=== PATIENT | male | born 2005 | race Two or more races ===

== ENCOUNTER 2025-01-06 17:36 | Inpatient (IN) | payer MEDICAID, OTHER ==
[~2025-01-06] VITALS: Ht 180.3 cm; Wt 83.3 kg
--- NOTE | 2025-01-06 18:11 | ED.PDOC ---
Back pain HPI HPI Comments REPORTS PAIN WITH SWELLING AND DISCOLORATION OF THE 3RD TOE ON HIS RIGHT FOOT X 1 WEEK. CMS INTACT. STATES HE IS CURRENTLY TAKING KEFLEX SINCE 01/03/25. DENIES NUMBNESS, WEAKNESS, FEVER, CHILLS, NAUSEA AND VOMITING DOES RATE PAIN A 10/10 ON PAIN SCALE THROBBING IN NATURE NONRADIATING. REPORTS NO SIGNIFICANT PAST MEDICAL HISTORY Chief Complaint: Lower Extremity Time Seen by MD: 18:06 Primary Care Provider: DENIES Reviewed Notes: Medications Allergies: Coded Allergies: NO KNOWN ALLERGIES (Unverified , 01/06/25) Mode of Arrival: Wheelchair Past Medical History PAST MEDICAL HISTORY: Denies Surgical History: Denies all surgeries Family History Family History: Reviewed,noncontributory to illness Social History Smoker: Non-Smoker Alcohol: Denies ETOH Use Drugs: Denies Drug Use Constitutional: denies: chills, diaphoresis, fatigue, fever, malaise, sweats, weakness, others EENTM: denies: blurred vision, double vision, ear bleeding, ear discharge, ear drainage, ear pain, ear ringing, eye pain, eye redness, hearing loss, mouth pain, mouth swelling, nasal discharge, nose bleeding, nose congestion, nose pain, photophobia, tearing, throat pain, throat swelling, voice changes, others Respiratory: denies: cough, hemoptysis, orthopnea, SOB at rest, shortness of breath, SOB with excertion, stridor, wheezing, others Cardiovascular: denies: chest pain, dizzy spells, diaphoresis, Dyspnea on exertion, edema, irregular heart beat, left arm pain, lightheadedness, p alpitations, PND, syncope, others Gastrointestinal: denies: abdomen distended, abdominal pain, blood streaked bowels, constipated, diarrhea, dysphagia, difficulty swallowing, hematemesis, melena, nausea, poor appetite, poor fluid intake, rectal bleeding, rectal pain, vomiting, others Genitourinary: denies: burning, dysuria, flank pain, frequency, hematuria, incontinence, penile discharge, penile sore, pain, testicle pain, testicle swelling, urgency, others Neurological: denies: dizziness, fainting, headache, left sided numbness, left sided weakness, numbness, paresthesia, pre-existing deficit, right sided numbness, right sided weakness, seizure, speech problems, tingling, tremors, weakness, others Musculoskeletal: reports: joint pain, joint swelling; denies: back pain, gout, muscle pain, muscle stiffness, neck pain, others Integumetry: reports: bruises; denies: change in color, change in hair/nails, dryness, laceration, lesions, lumps, rash, wounds, others Allergic/Immunocompromised: denies: Difficulty Healing, Frequent Infections, Hives, Itching, others Hematologic/Lymphatic: denies: anemia, blood clots, easy bleeding, easy bruising, swollen glands, others Endocrine: denies: excessive hunger, excessive sweating, excessive thirst, excessive urination, flushing, intolerance to cold, intolerance to heat, unexplained weight gain, unexplained weight loss, others Psychiatric: denies: anxiety, bipolar disorder, depression, hopeless, panic disorder, schizophrenia, sleepless, suicidal, others Physical Exam General Appearance: No Apparent Distress, Normal HEENT: Pharynx Normal Neck: Full Range of Motion, Non-Tender Respiratory: Lungs Clear, No Respiratory Distress, Normal Breath Sounds Cardiovascular: No Edema, No JVD, No Murmur, No Gallop, Normal Peripheral Pulses, Regular Rate/Rhythm Breast Exam: Deferred Gastrointestinal: No Organomegaly, Non Tender, No Pulsatile Mass, Normal Bowel Sounds, Soft Genitalia: Deferred Pelvic: Deferred Rectal: Deferred Extremities: Normal capillary refill, Normal inspection, Normal range of motion, Non-tender, No pedal edema Musculoskeletal : Location: Right Extremity Location: Toe 3 (MODERATE EDEMA, ECCHYMOSIS AND ERYTHEMA NO NOTED DRAINAGE STRENGTH SENSORY AND MOTION INTACT CAP REFILL GREATER THAN 3 SECONDS) Apperance: Normal Neurologic: Alert, No Motor Deficits, Normal Affect, Normal Mood, No Sensory Deficits Cerebellar Function: Normal Reflexes: Normal Skin: Dry, Normal Color, Warm Lymphatic: No Adenopathy Was a procedure done? Was a procedure done?: No Back Pain Differential Dx Differential Diagnosis: Fracture X-Ray, Labs, Meds, VS Vital Signs Date Time Temp Pulse Resp B/P (MAP) Pulse Ox O2 Delivery O2 Flow Rate FiO2 01/06/25 17:55 97.9 107 16 143/80 (101) 100 97.9 Lab Test 01/06/25 18:35 Range/Units White Blood Count 10.3 4.4-10.8 10^3/uL Red Blood Count 5.62 4.5-5.90 10^6/uL Hemoglobin 17.4 13.5-17.5 g/dL Hematocrit 49.0 41.0-53.0 % Mean Corpuscular Volume 87.2 80.0-100.0 fL Mean Corpuscular Hemoglobin 30.9 28.0-32.0 pg Mean Corpuscular Hemoglobin Concent 35.4 32.0-36.0 g/dL Red Cell Distribution Width 14.2 11.8-14.3 % Platelet Count 202 140-450 10^3/uL Mean Platelet Volume 9.4 6.9-10.8 fL Neutrophils (%) (Auto) 79.0 37.0-80.0 % Lymphocytes (%) (Auto) 13.0 10.0-50.0 % Monocytes (%) (Auto) 7.1 0.0-12.0 % Eosinophils (%) (Auto) 0.3 0.0-7.0 % Basophils (%) (Auto) 0.6 0.0-2.0 % Neutrophils # (Auto) 8.1 1.6-8.6 10 ^3/uL Lymphocytes # (Auto) 1.3 0.4-5.4 10 ^3/uL Monocytes # (Auto) 0.7 0-1.3 10 ^3/uL Eosinophils # (Auto) 0 0-0.8 10 ^3/uL Basophils # (Auto) 0.1 0-0.2 10 ^3/uL Nucleated Red Blood Cells 0.1 % Sodium Level 143 136-145 mmol/L Potassium Level 3.4 L 3.5-5.1 mmol/L Chloride Level 107 98-107 mmol/L Carbon Dioxide Level 23 20-31 mmol/L Anion Gap 13 5-15 Blood Urea Nitrogen 9 9-23 mg/dL Creatinine 0.86 0.700-1.30 mg/dL Glomerular Filtration Rate Calc 126 >90 mL/min BUN/Creatinine Ratio 10.5 10.0-20.0 Serum Glucose 106 74-106 mg/dL Calcium Level 9.8 8.7-10.4 mg/dL Total Bilirubin 1.3 H 0.2-1.0 mg/dL Aspartate Amino Transferase (AST) 21 0-34 U/L Alanine Aminotransferase (ALT) 24 7-40 U/L Alkaline Phosphatase 80 46-116 U/L Total Protein 7.8 5.7-8.2 g/dL Albumin 4.9 H 3.2-4.8 g/dL Current Medications Medications (Trade) Dose Ordered Sig/Zuly Route Start Time Stop Time Status Last Admin Vancomycin HCl 200 ml @ 200 mls/hr ONCE ONCE IV 01/06/25 18:30 01/06/25 19:29 DC 01/06/25 20:37 Ketorolac Tromethamine (Toradol Injection) 30 mg ONCE ONCE IV 01/06/25 18:30 01/06/25 18:31 DC 01/06/25 20:36 X-Ray, Labs, Meds, VS Comment CT RIGHT FOOT 3RD DIGIT IMPRESSION: 1. No fracture no periosteal reaction. 2. Inflammatory stranding in the subcutaneous tissues around the 3rd digit of the right foot. 3. If osteomyelitis is of clinical concern recommend MRI. LABS: CBC CMP WITHIN NORMAL LIMITS MEDICATIONS: TORADOL 30 MG IV PUSH VANCO 1 G IV PIGGYBACK PLAN: Patient failed outpatient antibiotics we will start patient on IV antibiotics and consider an MRI in the morning for possible osteomyelitis. Patient placed for hospitalist Time of 1ST Reevaluation: 18:06 Reevaluation 1ST: Unchanged Time of 2ND Reevaluation: 20:31 Reevaluation 2ND: Unchanged Patient Education/Counseling: Diagnosis, Treatment, Prognosis, Need For Follow Up Family Education/Counseling: Diagnosis, Treatment, Prognosis, Need For Follow Up Departure 1 Departure Time of Disposition: 19:37 Impression: Primary Impression: Infected abrasion of third toe of left foot Qualified Codes: S90.415A - Abrasion, left lesser toe(s), initial encounter; L08.9 - Local infection of the skin and subcutaneous tissue, unspecified Disposition: ADMITTED INPATIENT Condition: Stable Discharged With: Relative (Mother) Critical Care Note Critical Care Time?: No Stability Stability form required: SONIA Tse Jan 06, 2025 18:11
[2025-01-06 18:59] LABS: Basophils # (auto) 0.1 10 ^3/uL (0-0.2); Basophils % (auto) 0.6 % (0.0-2.0); Eosinophils # (auto) 0 10 ^3/uL (0-0.8); Eosinophils % (auto) 0.3 % (0.0-7.0); Hemoglobin 17.4 g/dL (13.5-17.5); Lymphocytes # (auto) 1.3 10 ^3/uL (0.4-5.4); Mean Corpuscular Hemoglobin 30.9 pg (28.0-32.0); Mean Corpuscular Hgb Conc. 35.4 g/dL (32.0-36.0); Mean Corpuscular Volume 87.2 fL (80.0-100.0); Monocytes # (auto) 0.7 10 ^3/uL (0-1.3); Monocytes % (auto) 7.1 % (0.0-12.0); Neutrophils # (auto) 8.1 10 ^3/uL (1.6-8.6); Nucleated Red Blood Cells % 0.1 %; Platelet Count (auto) 202 10^3/uL (140-450); Red Blood Cells 5.62 10^6/uL (4.5-5.90); Red Cell Distribution Width 14.2 % (11.8-14.3); White Blood Cell 10.3 10^3/uL (4.4-10.8)
--- NOTE | 2025-01-06 19:11 | DVH ---
INDICATION: third digit injury infection COMPARISON: None TECHNIQUE: CT of the right was performed without contrast. Volume transverse images were obtained and reconstructed in multiple planes using bone and soft tissue algorithms. CONTRAST: None Radiation Dose Information: CT Dose: CTDI volume is 7.75 mGy. Dose-length product is 177.98 mGy*cm FINDINGS: The alignment is normal. The joint spaces are normal. There is no fracture, dislocation, or focal osseous lesions. The soft tissues are normal. IMPRESSION: 1. No fracture no periosteal reaction. 2. Inflammatory stranding in the subcutaneous tissues around the 3rd digit of the right foot. 3. If osteomyelitis is of clinical concern recommend MRI. 4. All CT scans at this medical facility are performed using dose modulation techniques as appropriat e to a performed exam including the following: Automated exposure control was utilized; adjustment of the MA and/or KV according to patient size; and use of iterative reconstruction technique.
[2025-01-06 19:27] LABS: Alanine Aminotransferase 24 U/L (7-40); Alkaline Phosphatase 80 U/L (46-116); Anion Gap 13 (5-15); Aspartate Aminotransferase 21 U/L (0-34); BUN/Creatinine Ratio 10.5 (10.0-20.0); Blood Urea Nitrogen 9 mg/dL (9-23); Calcium 9.8 mg/dL (8.7-10.4); Carbon Dioxide 23 mmol/L (20-31); Chloride 107 mmol/L (98-107); Glucose 106 mg/dL (74-106); Sodium 143 mmol/L (136-145); Total Protein 7.8 g/dL (5.7-8.2)
[2025-01-06 19:34] LABS: Albumin 4.9 g/dL (3.2-4.8); Bilirubin, Total 1.3 mg/dL (0.2-1.0); Potassium 3.4 mmol/L (3.5-5.1)
[2025-01-06] MEDS: KETOROLAC TROMETH 30 MG/ML 1ML VIAL IV ONE (20:36)
[2025-01-06] MEDS: VANCOMYCIN 1GM/200ML PM 200 ML IV ONE (20:37)
--- NOTE | 2025-01-06 23:57 | DVHHP2 ---
History of Present Illness Reason for Visit: Infected abrasion of third toe of left foot History of Present Illness The patient is a 19-year-old male who denies past medical history presented to [facility] ED for evaluation of right foot 3rd digits swelling and discoloration for the past 1 week, currently on Keflex since January 03, 2025. Patient was seen and evaluated in the ED, laboratory data shows WBC 10.3, platelets 202, sodium 143, potassium 3.4, BUN 9, creatinine 0.86, glucose 106, total bilirubin 1.3, albumin 4.9, blood pressure 143/80, heart rate 107, temperature 97.9 F, O2 saturation 99% on room air. Right foot CT revealing inflammatory stranding in the subcutaneous tissues around the 3rd digit of the right foot, no fracture, no periosteal reaction. Patient was started on IV antibiotic regimen vancomycin, please see medication orders section in the computer. On my assessment, patient denied chest pain, no headache, no dizziness, no shortness of breath, no nausea, no vomiting, no fever, no chills. Patient was admitted for further evaluation and medical management. Past Medical History Denies past medical history Past Surgical History Denies all surgeries Family History Reviewed, noncontributory to the management of this case. Past Social History The patient lives at home, denies smoking, alcohol or illicit drugs abuse. Review of Systems Constitutional: No: Fever, Chills, Sweats, Weakness, Malaise, Other Eyes: No: Pain, Vision change, Conjunctivae inflammation, Eyelid inflammation, Other, Redness ENT: No: Ear pain, Ear discharge, Nose pain, Nose discharge, Nose congestion, Mouth pain, Mouth swelling, Throat pain, Throat swelling, Other Respiratory: No: Cough, Dry, Shortness of breath, SOB with excertion, Wheezing, Hemoptysis, Pleuritic Pain, Sputum, Wheezing, Other Cardiovascular: No: Chest Pain, Palpitations, Orthopnea, Paroxysmal Noc. Dyspnea, Edema, Lt Headedness, Other Gastrointestinal: No: Nausea, Vomiting, Abdominal Pain, Diarrhea, Constipation, Melena, Hematochezia, Other Genitourinary: No Dysuria, No Frequency, No Incontinence, No Hematuria, No Retention, No Other Musculoskeletal: other (Right 3rd digit swelling/redness); No: neck pain, shoulder pain, arm pain, back pain, hand pain, leg pain, foot pain Skin: Other (Right 3rd toe redness); No: Rash, Lesions, Jaundice, Bruising Neurological: No: Weakness, Numbness, Incoordination, Change in speech, Confusion, Seizures, Other Allergies: Coded Allergies: NO KNOWN ALLERGIES (Unverified , 01/06/25) Exam Vital Signs Vital Signs Date Time Temp Pulse Resp B/P (MAP) Pulse Ox O2 Delivery O2 Flow Rate FiO2 01/06/25 17:55 97.9 107 16 143/80 (101) 100 97.9 General Appearance: Alert, Oriented X3, Cooperative, No acute distress HEENT: Atraumatic, PERRLA, EOMI, Mucous membr. moist/pink Respiratory: Clear to auscultation, Normal air movement Cardiovascular: Regular rate, Normal S1, Normal S2, No murmurs Abdominal: Normal bowel sounds, Soft, No tenderness, No hepatospenomegaly, No masses Extremities: No clubbing, No cyanosis, No edema, Normal pulses, Other (Right 3rd digit swelling/tenderness) Skin: No rashes, No breakdown, No significant lesion Neuro: Normal gait, Normal speech, Strength at 5/5 X4 ext, Normal tone, Sensation intact, Cranial nerves 3-12 NL, Reflexes 2+ Psych/Mental Status: Mental status NL, Mood NL Labs/Xrays Labs Test 01/06/25 18:35 Range/Units White Blood Count 10.3 4.4-10.8 10^3/uL Red Blood Count 5.62 4.5-5.90 10^6/uL Hemoglobin 17.4 13.5-17.5 g/dL Hematocrit 49.0 41.0-53.0 % Mean Corpuscular Volume 87.2 80.0-100.0 fL Mean Corpuscular Hemoglobin 30.9 28.0-32.0 pg Mean Corpuscular Hemoglobin Concent 35.4 32.0-36.0 g/dL Red Cell Distribution Width 14.2 11.8-14.3 % Platelet Count 202 140-450 10^3/uL Mean Platelet Volume 9.4 6.9-10.8 fL Neutrophils (%) (Auto) 79.0 37.0-80.0 % Lymphocytes (%) (Auto) 13.0 10.0-50.0 % Monocytes (%) (Auto) 7.1 0.0-12.0 % Eosinophils (%) (Auto) 0.3 0.0-7.0 % Basophils (%) (Auto) 0.6 0.0-2.0 % Neutrophils # (Auto) 8.1 1.6-8.6 10 ^3/uL Lymphocytes # (Auto) 1.3 0.4-5.4 10 ^3/uL Monocytes # (Auto) 0.7 0-1.3 10 ^3/uL Eosinophils # (Auto) 0 0-0.8 10 ^3/uL Basophils # (Auto) 0.1 0-0.2 10 ^3/uL Nucleated Red Blood Cells 0.1 % Sodium Level 143 136-145 mmol/L Potassium Level 3.4 L 3.5-5.1 mmol/L Chloride Level 107 98-107 mmol/L Carbon Dioxide Level 23 20-31 mmol/L Anion Gap 13 5-15 Blood Urea Nitrogen 9 9-23 mg/dL Creatinine 0.86 0.700-1.30 mg/dL Glomerular Filtration Rate Calc 126 >90 mL/min BUN/Creatinine Ratio 10.5 10.0-20.0 Serum Glucose 106 74-106 mg/dL Calcium Level 9.8 8.7-10.4 mg/dL Total Bilirubin 1.3 H 0.2-1.0 mg/dL Aspartate Amino Transferase (AST) 21 0-34 U/L Alanine Aminotransferase (ALT) 24 7-40 U/L Alkaline Phosphatase 80 46-116 U/L Total Protein 7.8 5.7-8.2 g/dL Albumin 4.9 H 3.2-4.8 g/dL PATIENT: NATALYA COOLEY IACCT: [id number] UNIT: [id number] : 2005 LOC: ER ROOM / BED: / AGE / SEX: 19 / M ADM STATUS: REG ER SERVICE [id number] ORDERING PHYSICIAN: SONIA JOINER PROCEDURE(s): RFTCT - CT R FOOT WO CONTRAST REASON: third digit injury infection ORDER NUMBER(s): [id number], ACCESSION NUMBER(s): [id number] INDICATION: third digit injury infection COMPARISON: None TECHNIQUE: CT of the right was performed without contrast. Volume transverse images were obtained and reconstructed in multiple planes using bone and soft tissue algorithms. CONTRAST: None Radiation Dose Information: CT Dose: CTDI volume is 7.75 mGy. Dose-length product is 177.98 mGy*cm FINDINGS: The alignment is normal. The joint spaces are normal. There is no fracture, dislocation, or focal osseous lesions. The soft tissues are normal. IMPRESSION: 1. No fracture no periosteal reaction. 2. Inflammatory stranding in the subcutaneous tissues around the 3rd digit of the right foot. 3. If osteomyelitis is of clinical concern recommend MRI. Assessment/Plan Assessment/Plan Infected abrasion of third toe of left foot Abrasion, left lesser toe(s), initial encounter Local infection of the skin and subcutaneous tissue, unspecified Plan 1. Admit to med surge unit 2. Breathing treatment 3. Pain control management 4. Management of fluids and electrolytes 5. Consultation for hospitalist 6. Diagnostic tests right foot CT 7. DVT prophylaxis on SCDs 8. Repeat labs CBC, CMP in a.m. 9. Continue with current medical management 10. Treatment plan discussed with patient and RN. Patient verbalized understanding. Plan discussed with: Patient, Other (RN) Problem List: (1) Infected abrasion of third toe of left foot (2) Abrasion, left lesser toe(s), initial encounter (3) Local infection of the skin and subcutaneous tissue, unspecified Date of Service: Jan 06, 2025 Billing Provider: JESSIE HOUSE DNP Common Visit Codes: [id number] INP/OBS CARE (MOD) JESSIE HOUSE DNP Jan 06, 2025 23:57
[2025-01-07] VITALS (8 sets, daily range): BP systolic 120–148; BP diastolic 62–84; PULSE 54–65; RESP 16–20; TEMP 97.6–98.3; O2SAT 98–99
[2025-01-07] MEDS ORDERED: VANCOMYCIN PER PHARMACY 0 MG IV SCH
[2025-01-07] MEDS ORDERED: NITROGLYCERIN 0.4 MG SL TAB SL PRN
[2025-01-07] MEDS ORDERED: ONDANSETRON HCL 4 MG/2 ML VIAL IV PRN
[2025-01-07] MEDS ORDERED: MORPHINE SULFATE INJ 2 MG/ml SYRG IV PRN
[2025-01-07] MEDS ORDERED: DOCUSATE SOD 100 MG CAP PO PRN
[2025-01-07] MEDS ORDERED: ACETAMINOPHEN 325 MG TAB PO PRN
[2025-01-07] MEDS: HYDROcodone-ACET 5/325MG TAB PO PRN (02:57)
[2025-01-07] MEDS: VANCOMYCIN 1GM/200ML PM 200 ML IV ONE (02:58)
[2025-01-07] MEDS: SODIUM CHLOR 0.9% PF (SALINE LOCK) 10ML VIAL/SYR IV SCH (06:30)
[2025-01-07 07:06] LABS: Basophils # (auto) 0.1 10 ^3/uL (0-0.2); Basophils % (auto) 0.7 % (0.0-2.0); Eosinophils # (auto) 0 10 ^3/uL (0-0.8); Eosinophils % (auto) 0.2 % (0.0-7.0); Hematocrit 45.2 % (41.0-53.0); Lymphocytes # (auto) 1.8 10 ^3/uL (0.4-5.4); Lymphocytes % (auto) 22.6 % (10.0-50.0); Mean Corpuscular Hemoglobin 31.2 pg (28.0-32.0); Mean Corpuscular Hgb Conc. 35.5 g/dL (32.0-36.0); Mean Corpuscular Volume 87.9 fL (80.0-100.0); Monocytes # (auto) 0.7 10 ^3/uL (0-1.3); Neutrophils # (auto) 5.3 10 ^3/uL (1.6-8.6); Neutrophils % (auto) 67.5 % (37.0-80.0); Nucleated Red Blood Cells % 0.1 %; Platelet Count (auto) 173 10^3/uL (140-450); Red Blood Cells 5.14 10^6/uL (4.5-5.90); White Blood Cell 7.8 10^3/uL (4.4-10.8)
[2025-01-07 07:21] LABS: Alanine Aminotransferase 19 U/L (7-40); Alkaline Phosphatase 68 U/L (46-116); Anion Gap 13 (5-15); BUN/Creatinine Ratio 9.1 (10.0-20.0); Carbon Dioxide 24 mmol/L (20-31); Chloride 104 mmol/L (98-107); Sodium 141 mmol/L (136-145)
[2025-01-07 07:23] LABS: Albumin 4.4 g/dL (3.2-4.8); Aspartate Aminotransferase 17 U/L (<34)
[2025-01-07 07:29] LABS: Bilirubin, Total 1.7 mg/dL (0.2-1.0); Blood Urea Nitrogen 7 mg/dL (9-23); Glucose 97 mg/dL (74-106); Potassium 3.2 mmol/L (3.5-5.1)
[2025-01-07] MEDS: VANCOMYCIN 1.25GM/250ML 250 ML IV SCH (10:21)
--- NOTE | 2025-01-07 13:28 | DVHPN2 ---
Changes from previous H/P or p: No Changes Eyes: No Pain, No Vision change, No Conjunctivae inflammation, No Eyelid inflammation, No Other, No Redness ENT: No Ear pain, No Ear discharge, No Nose pain, No Nose discharge, No Nose congestion, No Mouth pain, No Mouth swelling, No Throat pain, No Throat swelling, No Other Cardiovascular: No Chest Pain, No Palpitations, No Orthopnea, No Paroxysmal Noc. Dyspnea, No Edema, No Lt Headedness, No Other Respiratory: No Cough, No Dry, No Shortness of breath, No SOB with excertion, No Wheezing, No Hemoptysis, No Pleuritic Pain, No Sputum, No Other Gastrointestinal: No Nausea, No Vomiting, No Abdominal Pain, No Diarrhea, No Constipation, No Melena, No Hematochezia, No Other Genitourinary: No Dysuria, No Frequency, No Incontinence, No Hematuria, No Retention, No Other Musculoskeletal: other (Right 3rd digit swelling/redness); No neck pain, No shoulder pain, No arm pain, No back pain, No hand pain, No leg pain, No foot pain Skin: No Rash, No Lesions, No Jaundice, No Bruising; Other (Right 3rd toe redness) Objective Vitals Vital Signs Date Time Temp Pulse Resp B/P (MAP) Pulse Ox O2 Delivery O2 Flow Rate FiO2 01/07/25 12:39 97.9 57 16 120/77 (91) 98 97.9 01/07/25 07:52 Room Air* 0 21 Intake/Output Intake and Output 01/07/25 07:00 Intake Total 200 ml Balance 200 ml Intake Oral 0 ml IV Total 200 ml Medications Current Medications Medications Dose Ordered Sig/Zuly Route Start Time Stop Time Status Last Admin Dose Admin Vancomycin HCl 0 ml @ 0 mls/hr UD IV 01/07/25 00:00 Sodium Chloride 10 ml Q8HR IV 01/07/25 06:00 01/07/25 06:30 10 ML Acetaminophen/ Hydrocodone Bitart 1 tab Q4HP PRN PO 01/07/25 00:00 01/07/25 08:13 1 TAB Ondansetron HCl 4 mg Q4HP PRN IV 01/07/25 00:00 Docusate Sodium 100 mg BIDPRN PRN PO 01/07/25 00:00 Acetaminophen 650 mg Q6HP PRN PO 01/07/25 00:00 Morphine Sulfate 2 mg Q4HPRN PRN IV 01/07/25 00:00 Nitroglycerin 0.4 mg Q5MINP PRN SL 01/07/25 00:00 Morphine Sulfate 2 mg Q30M PRN IV 01/07/25 00:00 Vancomycin HCl 250 ml @ 200 mls/hr Q8H IV 01/07/25 11:00 01/07/25 10:21 200 MLS/HR Laboratory Results Laboratory Tests 01/07/25 06:24 Chemistry Test 01/06/25 18:35 01/07/25 06:24 Albumin 4.9 g/dL (3.2-4.8) H 4.4 g/dL (3.2-4.8) Calcium Level 9.8 mg/dL (8.7-10.4) 9.0 mg/dL (8.7-10.4) Total Protein 7.8 g/dL (5.7-8.2) 7.0 g/dL (5.7-8.2) LFT Test 01/06/25 18:35 01/07/25 06:24 Alanine Aminotransferase (ALT) 24 U/L (7-40) 19 U/L (7-40) Alkaline Phosphatase 80 U/L (46-116) 68 U/L (46-116) Aspartate Amino Transferase (AST) 21 U/L (0-34) 17 U/L (<34) Total Bilirubin 1.3 mg/dL (0.2-1.0) H 1.7 mg/dL (0.2-1.0) H Labs and/or images reviewed: Labs reviewed by me, Image(s) reviewed by me Assessment/Plan Assessment/Plan Infected right 3rd toe: Vancomycin, CT right foot negative for any osteomyelitis Failed outpatient therapy on Keflex Plan discussed with: Patient Date of Service: Jan 07, 2025 Billing Provider: MARCELA BELL MD Common Visit Codes: [id number] INP/OBS CARE(HIGH) MARCELA BELL MD Jan 07, 2025 13:28
[2025-01-08 01:00] VITALS: BP 135/85; PULSE 56; RESP 18; TEMP 98.7; O2SAT 100
[2025-01-08 05:00] VITALS: BP 136/82; PULSE 50; RESP 17; TEMP 98; O2SAT 99
[2025-01-08 08:35] VITALS: BP 136/94; PULSE 60; RESP 18; TEMP 97.1; O2SAT 99
--- NOTE | 2025-01-08 09:41 | DVHPN2 ---
Reviewed: Care Plan, H&P, Labs, Medications, Previous Orders, Radiology Changes from previous H/P or p: No Changes Eyes: No Pain, No Vision change, No Conjunctivae inflammation, No Eyelid inflammation, No Other, No Redness ENT: No Ear pain, No Ear discharge, No Nose pain, No Nose discharge, No Nose congestion, No Mouth pain, No Mouth swelling, No Throat pain, No Throat swelling, No Other Cardiovascular: No Chest Pain, No Palpitations, No Orthopnea, No Paroxysmal Noc. Dyspnea, No Edema, No Lt Headedness, No Other Respiratory: No Cough, No Dry, No Shortness of breath, No SOB with excertion, No Wheezing, No Hemoptysis, No Pleuritic Pain, No Sputum, No Other Gastrointestinal: No Nausea, No Vomiting, No Abdominal Pain, No Diarrhea, No Constipation, No Melena, No Hematochezia, No Other Genitourinary: No Dysuria, No Frequency, No Incontinence, No Hematuria, No Retention, No Other Musculoskeletal: other (Right 3rd digit swelling/redness); No neck pain, No shoulder pain, No arm pain, No back pain, No hand pain, No leg pain, No foot pain Skin: No Rash, No Lesions, No Jaundice, No Bruising; Other (Right 3rd toe redness) Objective Vitals Vital Signs Date Time Temp Pulse Resp B/P (MAP) Pulse Ox O2 Delivery O2 Flow Rate FiO2 01/08/25 08:35 97.1 60 18 136/94 (108) 99 97.1 01/08/25 08:00 Room Air* 0 21 Intake/Output Intake and Output 01/08/25 07:00 Intake Total 2430 ml Output Total 700 ml Balance 1730 ml Intake Oral 1680 ml IV Total 750 ml Output Urine Total 700 ml # Voids 3 # Bowel Movements 1 Medications Current Medications Medications Dose Ordered Sig/Zuly Route Start Time Stop Time Status Last Admin Dose Admin Vancomycin HCl 0 ml @ 0 mls/hr UD IV 01/07/25 00:00 Sodium Chloride 10 ml Q8HR IV 01/07/25 06:00 01/08/25 05:11 10 ML Acetaminophen/ Hydrocodone Bitart 1 tab Q4HP PRN PO 01/07/25 00:00 01/08/25 03:01 1 TAB Ondansetron HCl 4 mg Q4HP PRN IV 01/07/25 00:00 Docusate Sodium 100 mg BIDPRN PRN PO 01/07/25 00:00 Acetaminophen 650 mg Q6HP PRN PO 01/07/25 00:00 Morphine Sulfate 2 mg Q4HPRN PRN IV 01/07/25 00:00 Nitroglycerin 0.4 mg Q5MINP PRN SL 01/07/25 00:00 Morphine Sulfate 2 mg Q30M PRN IV 01/07/25 00:00 Vancomycin HCl 250 ml @ 200 mls/hr Q8H IV 01/07/25 11:00 01/08/25 02:54 200 MLS/HR Laboratory Results Laboratory Tests 01/07/25 06:24 01/08/25 01:55 Labs and/or images reviewed: Labs reviewed by me, Image(s) reviewed by me Assessment/Plan Assessment/Plan Infected right 3rd toe: Vancomycin, CT right foot negative for any osteomyelitis Failed outpatient therapy on Keflex Plan discussed with: Patient My Orders Orders - MARCELA BELL MD Procedure Category Date Status Time Apply: DAVID 01/07/25 In Process 11:42 Date of Service: Jan 08, 2025 Billing Provider: MARCELA BELL MD Common Visit Codes: [id number] INP/OBS CARE(HIGH) MARCELA BELL MD Jan 08, 2025 09:41
[2025-01-08 12:00] VITALS: BP 136/92; PULSE 63; RESP 15; TEMP 97.8; O2SAT 99
[2025-01-08 16:46] VITALS: BP_SYST 125; BP_SYST 137; BP_DIAS 75; BP_DIAS 92; PULSE 81; PULSE 92; RESP 16; RESP 18; TEMP 98; TEMP 98.9; O2SAT 94; O2SAT 98
[2025-01-08 21:00] VITALS: BP 132/73; PULSE 57; RESP 20; TEMP 98; O2SAT 97
[2025-01-09 01:00] VITALS: BP 124/62; PULSE 47; RESP 16; TEMP 97.7; O2SAT 98
[2025-01-09 05:00] VITALS: BP 126/76; PULSE 68; RESP 20; TEMP 98.4; O2SAT 99
[2025-01-09 05:34] LABS: Basophils # (auto) 0.1 10 ^3/uL (0-0.2); Basophils % (auto) 1.1 % (0.0-2.0); Eosinophils # (auto) 0.1 10 ^3/uL (0-0.8); Eosinophils % (auto) 1.3 % (0.0-7.0); Hematocrit 46.2 % (41.0-53.0); Hemoglobin 16.3 g/dL (13.5-17.5); Lymphocytes # (auto) 1.5 10 ^3/uL (0.4-5.4); Lymphocytes % (auto) 28.4 % (10.0-50.0); Mean Corpuscular Hemoglobin 30.9 pg (28.0-32.0); Mean Corpuscular Hgb Conc. 35.3 g/dL (32.0-36.0); Mean Corpuscular Volume 87.5 fL (80.0-100.0); Monocytes # (auto) 0.6 10 ^3/uL (0-1.3); Monocytes % (auto) 12.2 % (0.0-12.0); Neutrophils # (auto) 2.9 10 ^3/uL (1.6-8.6); Nucleated Red Blood Cells % 0.3 %; Platelet Count (auto) 198 10^3/uL (140-450); Red Blood Cells 5.28 10^6/uL (4.5-5.90); White Blood Cell 5.2 10^3/uL (4.4-10.8)
[2025-01-09 09:00] VITALS: BP 134/88; PULSE 57; RESP 20; TEMP 97.1; O2SAT 100
--- NOTE | 2025-01-09 10:05 | DVHPN2 ---
Reviewed: Care Plan, H&P, Labs, Medications, Previous Orders, Radiology Changes from previous H/P or p: No Changes Eyes: No Pain, No Vision change, No Conjunctivae inflammation, No Eyelid inflammation, No Other, No Redness ENT: No Ear pain, No Ear discharge, No Nose pain, No Nose discharge, No Nose congestion, No Mouth pain, No Mouth swelling, No Throat pain, No Throat swelling, No Other Cardiovascular: No Chest Pain, No Palpitations, No Orthopnea, No Paroxysmal Noc. Dyspnea, No Edema, No Lt Headedness, No Other Respiratory: No Cough, No Dry, No Shortness of breath, No SOB with excertion, No Wheezing, No Hemoptysis, No Pleuritic Pain, No Sputum, No Other Gastrointestinal: No Nausea, No Vomiting, No Abdominal Pain, No Diarrhea, No Constipation, No Melena, No Hematochezia, No Other Genitourinary: No Dysuria, No Frequency, No Incontinence, No Hematuria, No Retention, No Other Musculoskeletal: other (Right 3rd digit swelling/redness); No neck pain, No shoulder pain, No arm pain, No back pain, No hand pain, No leg pain, No foot pain Skin: No Rash, No Lesions, No Jaundice, No Bruising; Other (Right 3rd toe redness) Objective Vitals Vital Signs Date Time Temp Pulse Resp B/P (MAP) Pulse Ox O2 Delivery O2 Flow Rate FiO2 01/09/25 08:00 Room Air* 0 21 01/09/25 05:00 98.4 68 20 126/76 (93) 99 98.4 Intake/Output Intake and Output 01/09/25 07:00 Intake Total 2650 ml Output Total 1325 ml Balance 1325 ml Intake Oral 2400 ml IV Total 250 ml Output Urine Total 1325 ml Medications Current Medications Medications Dose Ordered Sig/Zuly Route Start Time Stop Time Status Last Admin Dose Admin Vancomycin HCl 0 ml @ 0 mls/hr UD IV 01/07/25 00:00 Sodium Chloride 10 ml Q8HR IV 01/07/25 06:00 01/09/25 06:00 10 ML Acetaminophen/ Hydrocodone Bitart 1 tab Q4HP PRN PO 01/07/25 00:00 01/09/25 09:41 1 TAB Ondansetron HCl 4 mg Q4HP PRN IV 01/07/25 00:00 Docusate Sodium 100 mg BIDPRN PRN PO 01/07/25 00:00 Acetaminophen 650 mg Q6HP PRN PO 01/07/25 00:00 Morphine Sulfate 2 mg Q4HPRN PRN IV 01/07/25 00:00 Nitroglycerin 0.4 mg Q5MINP PRN SL 01/07/25 00:00 Morphine Sulfate 2 mg Q30M PRN IV 01/07/25 00:00 Vancomycin HCl 250 ml @ 200 mls/hr Q8H IV 01/07/25 11:00 01/09/25 03:10 200 MLS/HR Laboratory Results Laboratory Tests 01/07/25 06:24 01/09/25 05:10 Labs and/or images reviewed: Labs reviewed by me, Image(s) reviewed by me Assessment/Plan Assessment/Plan Infected right 3rd toe: Vancomycin, CT right foot negative for any osteomyelitis, complaint specialist consult for Dr. Bain Failed outpatient therapy on Keflex Plan discussed with: Patient Date of Service: Jan 09, 2025 Billing Provider: MARCELA BELL MD Common Visit Codes: [id number] INP/OBS CARE(HIGH) MARCELA BELL MD Jan 09, 2025 10:05
--- NOTE | 2025-01-09 12:58 | DVH ---
EXAMINATION: MRI MRI R FOOT WO CONTRAST TECHNIQUE: Multiplanar and multisequence MRI of the right foot was performed without intravenous cont rast. HISTORY: Cellulitis right 3rd toe COMPARISON: CT CT R FOOT WO CONTRAST on DOS: 01/06/25 FINDINGS: There is confluent intramedullary STIR hyperintensity and T1 hypointensity of the 3rd distal phalanx of the right foot. There is associated erosion along the plantar aspect of the bony cortex. The remai nder of the visualized foot demonstrates normal marrow signal. Soft tissue thickening and edema within the 3rd toe. There is suggestion of a skin defect/wound in th e dorsal aspect of the 3rd toe overlying the middle phalanx (series 9, image 8; series 6, image 17). There is overlying fluid superficial to the skin. Limited evaluation of tendons and ligaments in the foot. IMPRESSION: 1. Osteomyelitis of the 3rd distal phalanx. 2. Cellulitis of the 3rd toe with a probable skin defect/wound in the dorsal aspect of the toe.
[2025-01-09 13:00] VITALS: BP 149/91; PULSE 99; RESP 20; TEMP 97.9; O2SAT 99
[2025-01-09 17:00] VITALS: BP 135/79; PULSE 96; RESP 20; TEMP 96.5; O2SAT 99
[2025-01-09 21:00] VITALS: BP 138/89; PULSE 72; RESP 18; TEMP 98; O2SAT 99
[2025-01-10] VITALS (9 sets, daily range): BP systolic 123–144; BP diastolic 72–94; PULSE 62–112; RESP 12–20; TEMP 97.6–100.4; O2SAT 95–100
[2025-01-10 07:03] LABS: Basophils # (auto) 0 10 ^3/uL (0-0.2); Basophils % (auto) 0.8 % (0.0-2.0); Eosinophils # (auto) 0.1 10 ^3/uL (0-0.8); Eosinophils % (auto) 1.1 % (0.0-7.0); Hematocrit 47.2 % (41.0-53.0); Hemoglobin 16.9 g/dL (13.5-17.5); Lymphocytes % (auto) 17.2 % (10.0-50.0); Mean Corpuscular Hemoglobin 31.3 pg (28.0-32.0); Mean Corpuscular Hgb Conc. 35.8 g/dL (32.0-36.0); Mean Corpuscular Volume 87.6 fL (80.0-100.0); Monocytes # (auto) 0.6 10 ^3/uL (0-1.3); Neutrophils % (auto) 70.9 % (37.0-80.0); Platelet Count (auto) 219 10^3/uL (140-450); Red Blood Cells 5.38 10^6/uL (4.5-5.90); White Blood Cell 5.7 10^3/uL (4.4-10.8)
--- NOTE | 2025-01-10 09:22 | DVHINCON2 ---
Date Seen: Jan 10, 2025 Reason for Consultation Left foot wound History of Present Illness The patient is a 19-year-old male who denies past medical history presented to [facility] ED for evaluation of right foot 3rd digits swelling and discoloration for the past 1 week, currently on Keflex since January 03, 2025. Patient was seen and evaluated in the ED, laboratory data shows WBC 10.3, platelets 202, sodium 143, potassium 3.4, BUN 9, creatinine 0.86, glucose 106, total bilirubin 1.3, albumin 4.9, blood pressure 143/80, heart rate 107, temperature 97.9 F, O2 saturation 99% on room air. Right foot CT revealing inflammatory stranding in the subcutaneous tissues around the 3rd digit of the right foot, no fracture, no periosteal reaction. Patient was started on IV antibiotic regimen vancomycin, please see medication orders section in the computer. On my assessment, patient denied chest pain, no headache, no dizziness, no shortness of breath, no nausea, no vomiting, no fever, no chills. Patient was admitted for further evaluation and medical management. Past Medical History See H&P Past Surgical History See H&P Family History: Patient reports no known family medical history. Allergies: Coded Allergies: NO KNOWN ALLERGIES (Unverified , 01/06/25) Vital Signs Vital Signs Date Time Temp Pulse Resp B/P (MAP) Pulse Ox O2 Delivery O2 Flow Rate FiO2 01/10/25 05:00 98.2 68 18 123/72 (89) 100 98.2 01/09/25 20:00 Room Air* 0 21 Physical Exam Dermatological: Skin is dry with mild erythema and some maceration around the wound site No gross deformities noted Mild non-pitting edema present bilaterally Wound: Location: at the plantar aspect of the right first metatarsal head. Measures: _ cm in length, _ cm in width, and _ cm in depth. Depth: Full thickness Base: Mix of granulation/slough Drainage: None Odor: None Periwound: Intact Vascular: Dorsalis pedis and posterior tibial pulses are 1+ bilaterally Capillary refill is under 2 seconds Skin temperature is warm bilaterally Neurologic: Protective sensation is absent on the plantar forefoot bilaterally Monofilament testing reveals decreased sensation in multiple plantar sites Musculoskeletal: Range of motion at the ankle and MTP joints is within normal limits. Strength is 5/5 in all tested muscle groups. Gait is antalgic due to offloading of the affected limb. Labs/Diagnostic Data Labs Test 01/10/25 05:59 01/09/25 05:10 01/08/25 01:55 01/07/25 06:24 Range/Units White Blood Count 5.7 4.4-10.8 10^3/uL Red Blood Count 5.38 4.5-5.90 10^6/uL Hemoglobin 16.9 13.5-17.5 g/dL Hematocrit 47.2 41.0-53.0 % Mean Corpuscular Volume 87.6 80.0-100.0 fL Mean Corpuscular Hemoglobin 31.3 28.0-32.0 pg Mean Corpuscular Hemoglobin Concent 35.8 32.0-36.0 g/dL Red Cell Distribution Width 14.0 11.8-14.3 % Platelet Count 219 140-450 10^3/uL Mean Platelet Volume 8.8 6.9-10.8 fL Neutrophils (%) (Auto) 70.9 37.0-80.0 % Lymphocytes (%) (Auto) 17.2 10.0-50.0 % Monocytes (%) (Auto) 10.0 0.0-12.0 % Eosinophils (%) (Auto) 1.1 0.0-7.0 % Basophils (%) (Auto) 0.8 0.0-2.0 % Neutrophils # (Auto) 4.0 1.6-8.6 10 ^3/uL Lymphocytes # (Auto) 1.0 0.4-5.4 10 ^3/uL Monocytes # (Auto) 0.6 0-1.3 10 ^3/uL Eosinophils # (Auto) 0.1 0-0.8 10 ^3/uL Basophils # (Auto) 0 0-0.2 10 ^3/uL Nucleated Red Blood Cells 0.0 % Creatinine 0.82 0.700-1.30 mg/dL Glomerular Filtration Rate Calc 128 >90 mL/min Hemoglobin A1c 4.7 <5.7 % A1C Vancomycin Level Trough 11.5 H 5-10 ug/mL Sodium Level 141 136-145 mmol/L Potassium Level 3.2 L 3.5-5.1 mmol/L Chloride Level 104 98-107 mmol/L Carbon Dioxide Level 24 20-31 mmol/L Anion Gap 13 5-15 Blood Urea Nitrogen 7 L 9-23 mg/dL BUN/Creatinine Ratio 9.1 L 10.0-20.0 Serum Glucose 97 74-106 mg/dL Calcium Level 9.0 8.7-10.4 mg/dL Total Bilirubin 1.7 H 0.2-1.0 mg/dL Aspartate Amino Transferase (AST) 17 <34 U/L Alanine Aminotransferase (ALT) 19 7-40 U/L Alkaline Phosphatase 68 46-116 U/L Total Protein 7.0 5.7-8.2 g/dL Albumin 4.4 3.2-4.8 g/dL Problems(with codes): (1) Infected abrasion of third toe of left foot (2) Local infection of the skin and subcutaneous tissue, unspecified (3) Abrasion, left lesser toe(s), initial encounter Plan/Recommendation ASSESSMENT: Patient is a 19 year old seen on the floor for a worsening ulcer PLAN: - The patients chart was reviewed, clinical findings were discussed with the patient, the etiologies of the conditions were discussed in detail, and a treatment plan was agreed to at this time, with both oral and written instructio ns provided. - reviewed advanced imaging - discussed plan is to perform an incision and drainage - patient has been NPO since midnight - take him to the OR today - we will get cultures in the OR - can weightbear as tolerated in postoperative shoe All questions were answered and concerns addressed to the patient's satisfaction. The patient was given the phone number to the clinic and was told how to make contact with the clinic should any concerns or questions arise. Patient understands that if any questions or concerns arise prior to the next appointment, we should be contacted immediately. FOLLOW-UP: Continue to follow while inpatient Plan discussed with: Patient Date of Service: Jan 10, 2025 Billing Provider: ANUPAM GONZALEZ DPM Common Visit Codes: CONSULT ONLY Consultation Codes: [id number] CONSULT <80MIN ANUPAM GONZALEZ DPM Jan 10, 2025 09:22
--- NOTE | 2025-01-10 10:50 | DVHPN2 ---
Reviewed: Care Plan, H&P, Labs, Medications, Previous Orders, Radiology Changes from previous H/P or p: No Changes Eyes: No Pain, No Vision change, No Conjunctivae inflammation, No Eyelid inflammation, No Other, No Redness ENT: No Ear pain, No Ear discharge, No Nose pain, No Nose discharge, No Nose congestion, No Mouth pain, No Mouth swelling, No Throat pain, No Throat swelling, No Other Cardiovascular: No Chest Pain, No Palpitations, No Orthopnea, No Paroxysmal Noc. Dyspnea, No Edema, No Lt Headedness, No Other Respiratory: No Cough, No Dry, No Shortness of breath, No SOB with excertion, No Wheezing, No Hemoptysis, No Pleuritic Pain, No Sputum, No Other Gastrointestinal: No Nausea, No Vomiting, No Abdominal Pain, No Diarrhea, No Constipation, No Melena, No Hematochezia, No Other Genitourinary: No Dysuria, No Frequency, No Incontinence, No Hematuria, No Retention, No Other Musculoskeletal: other (Right 3rd digit swelling/redness); No neck pain, No shoulder pain, No arm pain, No back pain, No hand pain, No leg pain, No foot pain Skin: No Rash, No Lesions, No Jaundice, No Bruising; Other (Right 3rd toe redness) Objective Vitals Vital Signs Date Time Temp Pulse Resp B/P (MAP) Pulse Ox O2 Delivery O2 Flow Rate FiO2 01/10/25 09:00 98.3 64 20 132/81 (98) 99 98.3 01/09/25 20:00 Room Air* 0 21 Intake/Output Intake and Output 01/10/25 07:00 Intake Total 808 ml Output Total 1225 ml Balance -417 ml Intake Oral 558 ml IV Total 250 ml Output Urine Total 1225 ml Medications Current Medications Medications Dose Ordered Sig/Zuly Route Start Time Stop Time Status Last Admin Dose Admin Vancomycin HCl 0 ml @ 0 mls/hr UD IV 01/07/25 00:00 Sodium Chloride 10 ml Q8HR IV 01/07/25 06:00 01/10/25 06:00 10 ML Acetaminophen/ Hydrocodone Bitart 1 tab Q4HP PRN PO 01/07/25 00:00 01/09/25 16:24 1 TAB Ondansetron HCl 4 mg Q4HP PRN IV 01/07/25 00:00 Docusate Sodium 100 mg BIDPRN PRN PO 01/07/25 00:00 Acetaminophen 650 mg Q6HP PRN PO 01/07/25 00:00 Morphine Sulfate 2 mg Q4HPRN PRN IV 01/07/25 00:00 Nitroglycerin 0.4 mg Q5MINP PRN SL 01/07/25 00:00 Morphine Sulfate 2 mg Q30M PRN IV 01/07/25 00:00 Vancomycin HCl 250 ml @ 200 mls/hr Q8H IV 01/07/25 11:00 01/10/25 10:43 200 MLS/HR Laboratory Results Laboratory Tests 01/07/25 06:24 01/10/25 05:59 Labs and/or images reviewed: Labs reviewed by me, Image(s) reviewed by me Assessment/Plan Assessment/Plan Infected right 3rd toe: Vancomycin, MRI right foot shows osteomyelitis right 3rd toe, patient getting incision and drainage by Dr. Bain today Failed outpatient therapy on Keflex PICC line ordered Plan discussed with: Patient My Orders Orders - MARCELA BELL MD Procedure Category Date Status Time Notify Provider NOTICE 01/09/25 Transmitted Malnutrition 16:35 Nutritional NOURISH 01/09/25 Transmitted Supplements 16:35 Dietary NOTICE 01/09/25 Transmitted Recommendations 16:35 Date of Service: Jan 10, 2025 Billing Provider: MARCELA BELL MD Common Visit Codes: [id number] INP/OBS CARE(HIGH) MARCELA BELL MD Jan 10, 2025 10:50
[2025-01-10] MEDS ORDERED: MIDAZOLAM HCL 2MG/2ML 2ml VIAL (1mg/ml) ONE (12:44)
[2025-01-10] MEDS ORDERED: fentaNYL CITRATE 100 MCG/2 ML VL ONE (12:44)
[2025-01-10] MEDS ORDERED: PROPOFOL 10 MG/ML 20 ML IV ONE (12:45)
[2025-01-10] MEDS ORDERED: DexAMETHasone SOD PHOS 10MG/1ML VIAL INJ ONE (12:49)
[2025-01-10] MEDS ORDERED: ONDANSETRON HCL 4 MG/2 ML VIAL ONE (12:49)
[2025-01-10 12:56] LABS: INR 1.09 (0.9-1.15); Partial Thromboplastin Time 29.9 SEC (24.5-34.5); Prothrombin Time 11.5 sec (9.3-11.8)
[2025-01-10] MEDS: BUPIVACAINE 0.5% P/F INJ 10 ML VIAL ONE (13:05)
[2025-01-10] MEDS ORDERED: ROCURONIUM 10MG/ML 10ML VIAL IV ONE (13:06)
--- NOTE | 2025-01-10 13:10 | DVHOP2 ---
Operative Report - 2 Report Details Date: 01/10/25 Preop Diagnosis: 1. Right foot osteomyelitis 2. Right foot abscess 3. Right foot cellulitis 4. Right foot diabetic foot ulcer Postop Diagnosis: Same as preop Surgeon: Anupam Gonzalez MD Anesthesiologist: See anesthesia Anesthesia: Mac Consent: The patient was informed of the risks and benefits of the procedure. These include but are not limited to complications of anesthesia, postoperative infection, incomplete relief of symptoms, recurrence of symptoms, damage to blood vessels, nerves and tendons, deep venous thrombosis, pulmonary embolism and possible need for repeat surgery in the future. Complications: None Estimated Blood Loss: Minimal Fluids: See anesthesia Findings: Consistent with the diagnosis Indications for Surgery: Worsening right foot infection Name of Procedure Performed 1. Right foot I&D to bone () 2. Right foot third toe bone biopsy () Procedure Details Procedure Details: PRE-PROCEDURE INFORMATION: In the pre-op holding area, the extremity to be operated on was clearly marked and the patient verified correct laterality of t DESCRIPTION OF PROCEDURE: Attention was directed to the right foot where area of fluctuance was noted. An incision was made over this area and was deepened through blunt dissection. The incision was deepened to the level of abscess and bone. Care was taken to the dissection to avoid any neurovascular and tendinous structures. The incision was deepened to the bone, and the abscess appeared to be purulent fluid consistent with pus. The cortices of the bone was then removed with rongeur an all necrotic tissue. After the abscess was drained, the area was irrigated with 3 L normal saline using cysto tubing. Deep cultures were then obtained from the wound. The area was then inspected and any areas of tracking, especially along the tendons were also drained. A bone biopsy was then taken of the right 3rd toe which was deepened to the muscle belly and tendons. The bone was then sent to pathology to determine the extent of osteomyelitis. The wound was packed with Betadine-soaked gauze and we will need to be closed at a later date. POSTOPERATIVE INFORMATION: The patient tolerated the above noted procedure and anesthesia well and was transferred to the PACU with vital signs stable, and vascular status intact with capillary refill intact to all digits. Deep cultures were taken and bone biopsy was taken. Patient will return to the floor and continue IV antibiotics. Patient will return on Friday for subsequent closure. Patient will continue IV antibiotics. Patient will need 6 weeks IV antibiotics. Specimen: Right 3rd toe Condition Good Disposition Still a Patient ANUPAM GONZALEZ DPM Jan 10, 2025 13:10
[2025-01-10] MEDS ORDERED: HYDROmorphone HCL 2 MG/ML VL/or syr IV PRN (13:30)
[2025-01-10] MEDS: METOCLOPRAMIDE HCL 5MG/ml INJ 2ml VIAL IV ONE (13:30)
[2025-01-10] MEDS: KETOROLAC TROMETH 30 MG/ML 1ML VIAL IV ONE (13:30)
[2025-01-10] MEDS: ONDANSETRON HCL 4 MG/2 ML VIAL IV ONE (13:30)
[2025-01-10] MEDS: VANCOMYCIN 1.25GM/250ML 250 ML IV SCH (18:44)
[2025-01-11] VITALS (8 sets, daily range): BP systolic 112–139; BP diastolic 68–91; PULSE 51–68; RESP 17–20; TEMP 97.3–100; O2SAT 96–99
--- NOTE | 2025-01-11 09:48 | DVHPN2 ---
Reviewed: Care Plan, H&P, Labs, Medications, Previous Orders, Radiology Changes from previous H/P or p: No Changes Eyes: No Pain, No Vision change, No Conjunctivae inflammation, No Eyelid inflammation, No Other, No Redness ENT: No Ear pain, No Ear discharge, No Nose pain, No Nose discharge, No Nose congestion, No Mouth pain, No Mouth swelling, No Throat pain, No Throat swelling, No Other Cardiovascular: No Chest Pain, No Palpitations, No Orthopnea, No Paroxysmal Noc. Dyspnea, No Edema, No Lt Headedness, No Other Respiratory: No Cough, No Dry, No Shortness of breath, No SOB with excertion, No Wheezing, No Hemoptysis, No Pleuritic Pain, No Sputum, No Other Gastrointestinal: No Nausea, No Vomiting, No Abdominal Pain, No Diarrhea, No Constipation, No Melena, No Hematochezia, No Other Genitourinary: No Dysuria, No Frequency, No Incontinence, No Hematuria, No Retention, No Other Musculoskeletal: other (Right 3rd digit swelling/redness); No neck pain, No shoulder pain, No arm pain, No back pain, No hand pain, No leg pain, No foot pain Skin: No Rash, No Lesions, No Jaundice, No Bruising; Other (Right 3rd toe redness) Objective Vitals Vital Signs Date Time Temp Pulse Resp B/P (MAP) Pulse Ox O2 Delivery O2 Flow Rate FiO2 01/11/25 08:00 20 Room Air* 0 21 01/11/25 05:00 97.8 61 131/79 (96) 99 97.8 Intake/Output Intake and Output 01/11/25 07:00 Intake Total 1740 ml Output Total 1450 ml Balance 290 ml Intake Oral 1440 ml IV Total 300 ml Output Urine Total 1450 ml # Bowel Movements 1 Medications Current Medications Medications Dose Ordered Sig/Zuly Route Start Time Stop Time Status Last Admin Dose Admin Vancomycin HCl 0 ml @ 0 mls/hr UD IV 01/07/25 00:00 Sodium Chloride 10 ml Q8HR IV 01/07/25 06:00 01/11/25 05:37 10 ML Acetaminophen/ Hydrocodone Bitart 1 tab Q4HP PRN PO 01/07/25 00:00 01/11/25 09:14 1 TAB Ondansetron HCl 4 mg Q4HP PRN IV 01/07/25 00:00 Docusate Sodium 100 mg BIDPRN PRN PO 01/07/25 00:00 Acetaminophen 650 mg Q6HP PRN PO 01/07/25 00:00 Morphine Sulfate 2 mg Q4HPRN PRN IV 01/07/25 00:00 Nitroglycerin 0.4 mg Q5MINP PRN SL 01/07/25 00:00 Morphine Sulfate 2 mg Q30M PRN IV 01/07/25 00:00 Vancomycin HCl 250 ml @ 200 mls/hr Q8H IV 01/10/25 19:00 01/11/25 02:30 200 MLS/HR Laboratory Results Laboratory Tests 01/07/25 06:24 01/10/25 05:59 01/11/25 05:39 Coagulation Test 01/10/25 12:20 Prothrombin Time 11.5 sec (9.3-11.8) Prothrombin Time INR 1.09 (0.9-1.15) Activated Partial Thromboplast Time 29.9 SEC (24.5-34.5) Microbiology Microbiology Date/Time Source Procedure Growth Status 01/10/25 13:05 Foot Right Gram Stain Pending Resulted 01/10/25 13:05 Foot Right Anaerobic Culture - Preliminary Resulted 01/10/25 13:05 Foot Right Aerobic Culture Pending Resulted Labs and/or images reviewed: Labs reviewed by me, Image(s) reviewed by me Assessment/Plan Assessment/Plan Infected right 3rd toe: Vancomycin, MRI right foot shows osteomyelitis right 3rd toe, status post right foot I&D to bone with 3rd toe bone biopsy by elevator examiner Dr. Bain on 01-10-25 1. Right foot I&D to bone () 2. Right foot third toe bone biopsy () PICC line in place Cultures from the wound pending PICC line ordered Plan discussed with: Patient My Orders Orders - MARCELA BELL MD Procedure Category Date Status Time * Picc Line Consult CONS 01/10/25 Transmitted 10:50 Date of Service: Jan 11, 2025 Billing Provider: MARCELA BELL MD Common Visit Codes: [id number] INP/OBS CARE(HIGH) MARCELA BELL MD Jan 11, 2025 09:48
--- NOTE | 2025-01-11 13:08 | DVHPN2 ---
Subjective The patient is a 19-year-old male who denies past medical history presented to [facility] ED for evaluation of right foot 3rd digits swelling and discoloration for the past 1 week, currently on Keflex since January 03, 2025. Patient was seen and evaluated in the ED, laboratory data shows WBC 10.3, platelets 202, sodium 143, potassium 3.4, BUN 9, creatinine 0.86, glucose 106, total bilirubin 1.3, albumin 4.9, blood pressure 143/80, heart rate 107, temperature 97.9 F, O2 saturation 99% on room air. Right foot CT revealing inflammatory stranding in the subcutaneous tissues around the 3rd digit of the right foot, no fracture, no periosteal reaction. Patient was started on IV antibiotic regimen vancomycin, please see medication orders section in the computer. On my assessment, patient denied chest pain, no headache, no dizziness, no shortness of breath, no nausea, no vomiting, no fever, no chills. Patient was admitted for further evaluation and medical management. Reviewed: Care Plan, H&P, Labs, Medications, Previous Orders, Radiology Changes from previous H/P or p: No Changes Eyes: No Pain, No Vision change, No Conjunctivae inflammation, No Eyelid inflammation, No Other, No Redness ENT: No Ear pain, No Ear discharge, No Nose pain, No Nose discharge, No Nose congestion, No Mouth pain, No Mouth swelling, No Throat pain, No Throat swelling, No Other Cardiovascular: No Chest Pain, No Palpitations, No Orthopnea, No Paroxysmal Noc. Dyspnea, No Edema, No Lt Headedness, No Other Respiratory: No Cough, No Dry, No Shortness of breath, No SOB with excertion, No Wheezing, No Hemoptysis, No Pleuritic Pain, No Sputum, No Other Gastrointestinal: No Nausea, No Vomiting, No Abdominal Pain, No Diarrhea, No Constipation, No Melena, No Hematochezia, No Other Genitourinary: No Dysuria, No Frequency, No Incontinence, No Hematuria, No Retention, No Other Musculoskeletal: other (Right 3rd digit swelling/redness); No neck pain, No shoulder pain, No arm pain, No back pain, No hand pain, No leg pain, No foot pain Skin: No Rash, No Lesions, No Jaundice, No Bruising; Other (Right 3rd toe redness) Objective Vitals Vital Signs Date Time Temp Pulse Resp B/P (MAP) Pulse Ox O2 Delivery O2 Flow Rate FiO2 01/11/25 09:00 99.8 68 20 139/86 (103) 96 99.8 01/11/25 08:00 Room Air* 0 21 Intake/Output Intake and Output 01/11/25 07:00 Intake Total 1740 ml Output Total 1450 ml Balance 290 ml Intake Oral 1440 ml IV Total 300 ml Output Urine Total 1450 ml # Bowel Movements 1 Exam Dermatological: Skin is dry with mild erythema and some maceration around the wound site No gross deformities noted Mild non-pitting edema present bilaterally Left 3rd toe with open wound probes to bone Vascular: Dorsalis pedis and posterior tibial pulses are 1+ bilaterally Capillary refill is under 2 seconds Skin temperature is warm bilaterally Neurologic: Protective sensation is absent on the plantar forefoot bilaterally Monofilament testing reveals decreased sensation in multiple plantar sites Musculoskeletal: Range of motion at the ankle and MTP joints is within normal limits. Strength is 5/5 in all tested muscle groups. Gait is antalgic due to offloading of the affected limb. Medications Current Medications Medications Dose Ordered Sig/Zuly Route Start Time Stop Time Status Last Admin Dose Admin Vancomycin HCl 0 ml @ 0 mls/hr UD IV 01/07/25 00:00 Sodium Chloride 10 ml Q8HR IV 01/07/25 06:00 01/11/25 10:52 10 ML Acetaminophen/ Hydrocodone Bitart 1 tab Q4HP PRN PO 01/07/25 00:00 01/11/25 09:14 1 TAB Ondansetron HCl 4 mg Q4HP PRN IV 01/07/25 00:00 Docusate Sodium 100 mg BIDPRN PRN PO 01/07/25 00:00 Acetaminophen 650 mg Q6HP PRN PO 01/07/25 00:00 Morphine Sulfate 2 mg Q4HPRN PRN IV 01/07/25 00:00 Nitroglycerin 0.4 mg Q5MINP PRN SL 01/07/25 00:00 Morphine Sulfate 2 mg Q30M PRN IV 01/07/25 00:00 Vancomycin HCl 250 ml @ 200 mls/hr Q8H IV 01/10/25 19:00 01/11/25 10:52 200 MLS/HR Vancomycin HCl 300 ml @ 200 mls/hr Q8H IV 01/11/25 19:00 UNV Laboratory Results Laboratory Tests 01/07/25 06:24 01/10/25 05:59 01/11/25 05:39 Microbiology Microbiology Date/Time Source Procedure Growth Status 01/10/25 13:05 Foot Right Gram Stain Pending Resulted 01/10/25 13:05 Foot Right Anaerobic Culture - Preliminary Resulted 01/10/25 13:05 Foot Right Aerobic Culture - Preliminary Resulted Assessment/Plan Assessment/Plan ASSESSMENT: Patient is a 19 year old seen on the floor follow up s/p foot I&D PLAN: - The patients chart was reviewed, clinical findings were discussed with the patient, the etiologies of the conditions were discussed in detail, and a treatment plan was agreed to at this time, with both oral and written instructions provided. - reviewed advanced imaging - reviewed all of the labs and pathology - discussed plan is to perform a subsequent incision and drainage and closure - patient will be NPO at midnight - take him to the OR tomorrow - it was determined that multiple I&Ds will be necessary to save the limb - evaluted patients both feet that patient would benefit from routine foot care as an outpatient - can weightbear as tolerated in postoperative shoe All questions were answered and concerns addressed to the patient's satisfaction. The patient was given the phone number to the clinic and was told how to make contact with the clinic should any concerns or questions arise. Patient understands that if any questions or concerns arise prior to the next appointment, we should be contacted immediately. FOLLOW-UP: Continue to follow while inpatient Plan discussed with: Patient My Orders Orders - ANUPAM GONZALEZ DPM Procedure Category Date Status Time Gram Stain SERG 01/10/25 In Process 13:05 Routine Bacterial SERG 01/10/25 In Process Culture 13:05 Anaerobic Culture SERG 01/10/25 In Process 13:05 Regular Diet DIET 01/10/25 Transmitted Dinner Problem List: (1) Infected abrasion of third toe of left foot (2) Local infection of the skin and subcutaneous tissue, unspecified (3) Abrasion, left lesser toe(s), initial encounter Date of Service: Jan 11, 2025 Billing Provider: ANUPAM GONZALEZ DPM Common Visit Codes: [id number] INP/OBS CARE(HIGH) ANUPAM GONZALEZ DPM Jan 11, 2025 13:08
[2025-01-11] MEDS: LIDOCAINE 1% (LOCAL ANESTH.) PF 5ml SDV ID ONE (14:47)
[2025-01-11] MEDS ORDERED: VANCOMYCIN 1.5GM/300ML 300 ML IV SCH (19:00)
[2025-01-11] MEDS: SODIUM CHLOR 0.9% PF (SALINE LOCK) 10ML VIAL/SYR IV SCH (22:10)
[2025-01-11] MEDS: MORPHINE SULFATE INJ 2 MG/ml SYRG IV PRN (23:09)
[2025-01-12] VITALS (8 sets, daily range): BP systolic 118–136; BP diastolic 61–82; PULSE 53–82; RESP 12–18; TEMP 95.6–97.8; O2SAT 97–99
--- NOTE | 2025-01-12 09:16 | DVHPN2 ---
Subjective The patient is a 19-year-old male who denies past medical history presented to [facility] ED for evaluation of right foot 3rd digits swelling and discoloration for the past 1 week, currently on Keflex since January 03, 2025. Patient was seen and evaluated in the ED, laboratory data shows WBC 10.3, platelets 202, sodium 143, potassium 3.4, BUN 9, creatinine 0.86, glucose 106, total bilirubin 1.3, albumin 4.9, blood pressure 143/80, heart rate 107, temperature 97.9 F, O2 saturation 99% on room air. Right foot CT revealing inflammatory stranding in the subcutaneous tissues around the 3rd digit of the right foot, no fracture, no periosteal reaction. Patient was started on IV antibiotic regimen vancomycin, please see medication orders section in the computer. On my assessment, patient denied chest pain, no headache, no dizziness, no shortness of breath, no nausea, no vomiting, no fever, no chills. Patient was admitted for further evaluation and medical management. Reviewed: Care Plan, H&P, Labs, Medications, Previous Orders, Radiology Changes from previous H/P or p: No Changes Eyes: No Pain, No Vision change, No Conjunctivae inflammation, No Eyelid inflammation, No Other, No Redness ENT: No Ear pain, No Ear discharge, No Nose pain, No Nose discharge, No Nose congestion, No Mouth pain, No Mouth swelling, No Throat pain, No Throat swelling, No Other Cardiovascular: No Chest Pain, No Palpitations, No Orthopnea, No Paroxysmal Noc. Dyspnea, No Edema, No Lt Headedness, No Other Respiratory: No Cough, No Dry, No Shortness of breath, No SOB with excertion, No Wheezing, No Hemoptysis, No Pleuritic Pain, No Sputum, No Other Gastrointestinal: No Nausea, No Vomiting, No Abdominal Pain, No Diarrhea, No Constipation, No Melena, No Hematochezia, No Other Genitourinary: No Dysuria, No Frequency, No Incontinence, No Hematuria, No Retention, No Other Musculoskeletal: other (Right 3rd digit swelling/redness); No neck pain, No shoulder pain, No arm pain, No back pain, No hand pain, No leg pain, No foot pain Skin: No Rash, No Lesions, No Jaundice, No Bruising; Other (Right 3rd toe redness) Objective Vitals Vital Signs Date Time Temp Pulse Resp B/P (MAP) Pulse Ox O2 Delivery O2 Flow Rate FiO2 01/12/25 05:00 97.8 53 17 118/61 (80) 99 97.8 01/11/25 20:00 Room Air* 0 21 Intake/Output Intake and Output 01/12/25 06:59 Intake Total 1310 ml Output Total 1800 ml Balance -490 ml Intake Oral 1060 ml IV Total 250 ml Output Urine Total 1800 ml Exam Dermatological: Skin is dry with mild erythema and some maceration around the wound site No gross deformities noted Mild non-pitting edema present bilaterally Left 3rd toe with open wound probes to bone Vascular: Dorsalis pedis and posterior tibial pulses are 1+ bilaterally Capillary refill is under 2 seconds Skin temperature is warm bilaterally Neurologic: Protective sensation is absent on the plantar forefoot bilaterally Monofilament testing reveals decreased sensation in multiple plantar sites Musculoskeletal: Range of motion at the ankle and MTP joints is within normal limits. Strength is 5/5 in all tested muscle groups. Gait is antalgic due to offloading of the affected limb. Medications Current Medications Medications Dose Ordered Sig/Zuly Route Start Time Stop Time Status Last Admin Dose Admin Vancomycin HCl 0 ml @ 0 mls/hr UD IV 01/07/25 00:00 Sodium Chloride 10 ml Q8HR IV 01/07/25 06:00 01/12/25 05:24 10 ML Acetaminophen/ Hydrocodone Bitart 1 tab Q4HP PRN PO 01/07/25 00:00 01/11/25 19:00 1 TAB Ondansetron HCl 4 mg Q4HP PRN IV 01/07/25 00:00 Docusate Sodium 100 mg BIDPRN PRN PO 01/07/25 00:00 Acetaminophen 650 mg Q6HP PRN PO 01/07/25 00:00 Morphine Sulfate 2 mg Q4HPRN PRN IV 01/07/25 00:00 01/11/25 23:09 2 MG Nitroglycerin 0.4 mg Q5MINP PRN SL 01/07/25 00:00 Morphine Sulfate 2 mg Q30M PRN IV 01/07/25 00:00 Vancomycin HCl 250 ml @ 200 mls/hr Q8H IV 01/10/25 19:00 01/12/25 03:06 200 MLS/HR Vancomycin HCl 300 ml @ 200 mls/hr Q8H IV 01/11/25 19:00 UNV Sodium Chloride 10 ml QSHIFT@10,22 IV 01/11/25 22:00 01/11/25 22:10 10 ML Laboratory Results Laboratory Tests 01/07/25 06:24 01/10/25 05:59 01/12/25 05:08 Microbiology Microbiology Date/Time Source Procedure Growth Status 01/10/25 13:05 Foot Right Gram Stain - Final Resulted 01/10/25 13:05 Foot Right Anaerobic Culture - Preliminary Resulted 01/10/25 13:05 Aerobic Culture - Preliminary Staphylococcus aureus Resulted Assessment/Plan Assessment/Plan ASSESSMENT: Patient is a 19 year old seen on the floor follow up s/p foot I&D PLAN: - The patients chart was reviewed, clinical findings were discussed with the patient, the etiologies of the conditions were discussed in detail, and a treatment plan was agreed to at this time, with both oral and written instructions provided. - reviewed advanced imaging - reviewed all of the labs and pathology - discussed plan is to perform a subsequent incision and drainage and closure - patient has been NPO since midnight - take him to the OR today - it was determined that multiple I&Ds will be necessary to save the limb - can weightbear as tolerated in postoperative shoe All questions were answered and concerns addressed to the patient's satisfaction. The patient was given the phone number to the clinic and was told how to make contact with the clinic should any concerns or questions arise. Patient understands that if any questions or concerns arise prior to the next appointment, we should be contacted immediately. FOLLOW-UP: Continue to follow while inpatient Plan discussed with: Patient My Orders Orders - ANUPAM GONZALEZ DPM Procedure Category Date Status Time Npo (Nothing By DIET 01/12/25 Transmitted Mouth) Diet Breakfast Obtain Consent For: ORDERS 01/11/25 Transmitted 13:14 Problem List: (1) Infected abrasion of third toe of left foot (2) Local infection of the skin and subcutaneous tissue, unspecified (3) Abrasion, left lesser toe(s), initial encounter Date of Service: Jan 12, 2025 Billing Provider: ANUPAM GONZALEZ DPM Common Visit Codes: [id number] INP/OBS CARE(HIGH) ANUPAM GONZALEZ DPM Jan 12, 2025 09:16
--- NOTE | 2025-01-12 10:10 | DVHPN2 ---
Reviewed: Care Plan, H&P, Labs, Medications, Previous Orders, Radiology Changes from previous H/P or p: No Changes Eyes: No Pain, No Vision change, No Conjunctivae inflammation, No Eyelid inflammation, No Other, No Redness ENT: No Ear pain, No Ear discharge, No Nose pain, No Nose discharge, No Nose congestion, No Mouth pain, No Mouth swelling, No Throat pain, No Throat swelling, No Other Cardiovascular: No Chest Pain, No Palpitations, No Orthopnea, No Paroxysmal Noc. Dyspnea, No Edema, No Lt Headedness, No Other Respiratory: No Cough, No Dry, No Shortness of breath, No SOB with excertion, No Wheezing, No Hemoptysis, No Pleuritic Pain, No Sputum, No Other Gastrointestinal: No Nausea, No Vomiting, No Abdominal Pain, No Diarrhea, No Constipation, No Melena, No Hematochezia, No Other Genitourinary: No Dysuria, No Frequency, No Incontinence, No Hematuria, No Retention, No Other Musculoskeletal: other (Right 3rd digit swelling/redness); No neck pain, No shoulder pain, No arm pain, No back pain, No hand pain, No leg pain, No foot pain Skin: No Rash, No Lesions, No Jaundice, No Bruising; Other (Right 3rd toe redness) Objective Vitals Vital Signs Date Time Temp Pulse Resp B/P (MAP) Pulse Ox O2 Delivery O2 Flow Rate FiO2 01/12/25 09:00 97.8 62 16 125/78 (94) 98 97.8 01/11/25 20:00 Room Air* 0 21 Intake/Output Intake and Output 01/12/25 07:00 Intake Total 1310 ml Output Total 1800 ml Balance -490 ml Intake Oral 1060 ml IV Total 250 ml Output Urine Total 1800 ml Medications Current Medications Medications Dose Ordered Sig/Zuly Route Start Time Stop Time Status Last Admin Dose Admin Vancomycin HCl 0 ml @ 0 mls/hr UD IV 01/07/25 00:00 Sodium Chloride 10 ml Q8HR IV 01/07/25 06:00 01/12/25 05:24 10 ML Acetaminophen/ Hydrocodone Bitart 1 tab Q4HP PRN PO 01/07/25 00:00 01/12/25 09:46 1 TAB Ondansetron HCl 4 mg Q4HP PRN IV 01/07/25 00:00 Docusate Sodium 100 mg BIDPRN PRN PO 01/07/25 00:00 Acetaminophen 650 mg Q6HP PRN PO 01/07/25 00:00 Morphine Sulfate 2 mg Q4HPRN PRN IV 01/07/25 00:00 01/11/25 23:09 2 MG Nitroglycerin 0.4 mg Q5MINP PRN SL 01/07/25 00:00 Morphine Sulfate 2 mg Q30M PRN IV 01/07/25 00:00 Vancomycin HCl 250 ml @ 200 mls/hr Q8H IV 01/10/25 19:00 01/12/25 09:47 200 MLS/HR Vancomycin HCl 300 ml @ 200 mls/hr Q8H IV 01/11/25 19:00 UNV Sodium Chloride 10 ml QSHIFT@,22 IV 01/11/25 22:00 01/11/25 22:10 10 ML Laboratory Results Laboratory Tests 01/07/25 06:24 01/10/25 05:59 01/12/25 05:08 Microbiology Microbiology Date/Time Source Procedure Growth Status 01/10/25 13:05 Foot Right Gram Stain - Final Resulted 01/10/25 13:05 Foot Right Anaerobic Culture - Preliminary Resulted 01/10/25 13:05 Aerobic Culture - Preliminary Staphylococcus aureus Resulted Labs and/or images reviewed: Labs reviewed by me, Image(s) reviewed by me Assessment/Plan Assessment/Plan Infected right 3rd toe: Vancomycin, MRI right foot shows osteomyelitis right 3rd toe, status post right foot I&D to bone with 3rd toe bone biopsy by laborer/key man Dr. Bain on 01-10-25 1. Right foot I&D to bone () 2. Right foot third toe bone biopsy () PICC line in place Cultures from the wound pending Patient Going for repeat I and D today Plan discussed with: Patient My Orders Orders - MARCELA BELL MD Procedure Category Date Status Time Change Dressing Prn DAVID 01/11/25 In Process 14:42 Sodium Chloride Lock PHA 01/11/25 In Process (Saline Lock Ns) 22:00 Do Not Use Picc For DAVID 01/11/25 In Process Blood Cult 14:42 May Draw Blood From DAVID 01/11/25 In Process Picc 14:42 Ok To Use Picc DAVID 01/11/25 In Process 14:42 Change Picc Dressing DAVID 01/11/25 In Process Q7 Days 14:42 Date of Service: Jan 12, 2025 Billing Provider: MARCELA BELL MD Common Visit Codes: [id number] INP/OBS CARE(HIGH) MARCELA BELL MD Jan 12, 2025 10:10
[2025-01-12] MEDS ORDERED: fentaNYL CITRATE 100 MCG/2 ML VL ONE (13:18)
--- NOTE | 2025-01-12 13:18 | DVHOP2 ---
Operative Report - 2 Report Details Date: 01/12/25 Preop Diagnosis: 1. Right foot osteomyelitis 2. Right foot abscess 3. Right foot cellulitis 4. Right foot diabetic foot ulcer Postop Diagnosis: Same as preop Surgeon: Anupam Gonzalez MD Anesthesiologist: See anesthesia Anesthesia: Mac Consent: The patient was informed of the risks and benefits of the procedure. These include but are not limited to complications of anesthesia, postoperative infection, incomplete relief of symptoms, recurrence of symptoms, damage to blood vessels, nerves and tendons, deep venous thrombosis, pulmonary embolism and possible need for repeat surgery in the future. Complications: None Estimated Blood Loss: Minimal Fluids: See anesthesia Findings: Consistent with diagnosis Indications for Surgery: Worsening right foot wounds Name of Procedure Performed 1. Right foot I&D to bone (38807) 2. Right foot delayed closure (54482) Procedure Details Procedure Details: PRE-PROCEDURE INFORMATION: In the pre-op holding area, the extremity to be operated on was clearly marked and the patient verified correct laterality of the marking. The patient was transferred to the OR table and placed in a supine position. A timeout was performed in which identification of the correct patient, procedure, location, and materials was done. The right foot and leg were prepped and draped in normal sterile fashion. DESCRIPTION OF PROCEDURE: Attention was directed to the right foot where area of fluctuance was noted. An incision was made over this area and was deepened through blunt dissection. The incision was deepened to the level of abscess and bone. Care was taken to the dissection to avoid any neurovascular and tendinous structures. The incision was deepened to the bone, and the abscess appeared to be purulent fluid consistent with pus. The cortices of the bone was then removed with rongeur an all necrotic tissue. After the abscess was drained, the area was irrigated with 3 L normal saline using cysto tubing. Deep cultures were then obtained from the wound. The area was then inspected and any areas of tracking, especially along the tendons were also drained. A delayed closure was then performed using 2-0 nylon after was deemed appropriate with no longer concern for infection. POSTOPERATIVE INFORMATION: The patient tolerated the above noted procedure and anesthesia well and was transferred to the PACU with vital signs stable, and vascular status intact with capillary refill intact to all digits. Six weeks IV antibiotics. Patient can weightbear as tolerated with a postoperative shoe. Leave the dressings on until patient sees me 1 week after discharge. Condition Good Disposition Still a Patient ANUPAM GONZALEZ DPM Jan 12, 2025 13:18
[2025-01-12] MEDS ORDERED: PROPOFOL 10 MG/ML 20 ML IV ONE (13:19)
[2025-01-12] MEDS ORDERED: HYDROmorphone HCL 2 MG/ML VL/or syr ONE (13:19)
[2025-01-12] MEDS: VANCOMYCIN HCL 1000 MG VL ONE (13:20)
[2025-01-12] MEDS ORDERED: ONDANSETRON HCL 4 MG/2 ML VIAL ONE (13:30)
[2025-01-12] MEDS ORDERED: DexAMETHasone SOD PHOS 10MG/1ML VIAL INJ ONE (13:30)
[2025-01-12] MEDS: BUPIVACAINE 0.5% P/F INJ 10 ML VIAL ONE (13:33)
[2025-01-12] MEDS: VANCOMYCIN 1.25GM/250ML 250 ML IV SCH (20:20)
[2025-01-13] VITALS (8 sets, daily range): BP systolic 114–128; BP diastolic 59–76; PULSE 52–87; RESP 15–18; TEMP 97.6–99.3; O2SAT 97–100
--- NOTE | 2025-01-13 10:14 | DVHPN2 ---
Reviewed: Care Plan, H&P, Labs, Medications, Previous Orders, Radiology Changes from previous H/P or p: No Changes Eyes: No Pain, No Vision change, No Conjunctivae inflammation, No Eyelid inflammation, No Other, No Redness ENT: No Ear pain, No Ear discharge, No Nose pain, No Nose discharge, No Nose congestion, No Mouth pain, No Mouth swelling, No Throat pain, No Throat swelling, No Other Cardiovascular: No Chest Pain, No Palpitations, No Orthopnea, No Paroxysmal Noc. Dyspnea, No Edema, No Lt Headedness, No Other Respiratory: No Cough, No Dry, No Shortness of breath, No SOB with excertion, No Wheezing, No Hemoptysis, No Pleuritic Pain, No Sputum, No Other Gastrointestinal: No Nausea, No Vomiting, No Abdominal Pain, No Diarrhea, No Constipation, No Melena, No Hematochezia, No Other Genitourinary: No Dysuria, No Frequency, No Incontinence, No Hematuria, No Retention, No Other Musculoskeletal: other (Right 3rd digit swelling/redness); No neck pain, No shoulder pain, No arm pain, No back pain, No hand pain, No leg pain, No foot pain Skin: No Rash, No Lesions, No Jaundice, No Bruising; Other (Right 3rd toe redness) Objective Vitals Vital Signs Date Time Temp Pulse Resp B/P (MAP) Pulse Ox O2 Delivery O2 Flow Rate FiO2 01/13/25 05:00 98.2 87 18 125/76 (92) 99 98.2 01/12/25 20:00 Room Air* 0 21 Intake/Output Intake and Output 01/13/25 07:00 Intake Total 1325 ml Output Total 2300 ml Balance -975 ml Intake Oral 800 ml IV Total 525 ml Output Urine Total 2300 ml # Voids 4 Medications Current Medications Medications Dose Ordered Sig/Zuly Route Start Time Stop Time Status Last Admin Dose Admin Vancomycin HCl 0 ml @ 0 mls/hr UD IV 01/07/25 00:00 Sodium Chloride 10 ml Q8HR IV 01/07/25 06:00 01/13/25 06:00 10 ML Acetaminophen/ Hydrocodone Bitart 1 tab Q4HP PRN PO 01/07/25 00:00 01/13/25 09:24 1 TAB Ondansetron HCl 4 mg Q4HP PRN IV 01/07/25 00:00 Docusate Sodium 100 mg BIDPRN PRN PO 01/07/25 00:00 Acetaminophen 650 mg Q6HP PRN PO 01/07/25 00:00 Morphine Sulfate 2 mg Q4HPRN PRN IV 01/07/25 00:00 01/11/25 23:09 2 MG Nitroglycerin 0.4 mg Q5MINP PRN SL 01/07/25 00:00 Morphine Sulfate 2 mg Q30M PRN IV 01/07/25 00:00 Vancomycin HCl 300 ml @ 200 mls/hr Q8H IV 01/11/25 19:00 UNV Sodium Chloride 10 ml QSHIFT@10,22 IV 01/11/25 22:00 01/13/25 04:41 10 ML Vancomycin HCl 250 ml @ 200 mls/hr Q8H IV 01/12/25 20:00 01/13/25 04:41 200 MLS/HR Laboratory Results Laboratory Tests 01/07/25 06:24 01/10/25 05:59 01/13/25 05:30 Microbiology Microbiology Date/Time Source Procedure Growth Status 01/10/25 13:05 Foot Right Gram Stain - Final Resulted 01/10/25 13:05 Foot Right Anaerobic Culture - Preliminary Resulted 01/10/25 13:05 Aerobic Culture - Preliminary Staphylococcus aureus Resulted Labs and/or images reviewed: Labs reviewed by me, Image(s) reviewed by me Assessment/Plan Assessment/Plan Infected right 3rd toe: Vancomycin, MRI right foot shows osteomyelitis right 3rd toe, status post right foot I&D to bone with 3rd toe bone biopsy by science technicians Dr. Bain on 01-10-25 1. Right foot I&D to bone () 2. Right foot third toe bone biopsy () PICC line in place Cultures from the wound showing MSSA, continue vancomycin Patient Going for repeat I and D today Plan discussed with: Patient My Orders Orders - MARCELA BELL MD Procedure Category Date Status Time Regular Diet DIET 01/12/25 Transmitted Lunch Date of Service: Jan 13, 2025 Billing Provider: MARCELA BELL MD Common Visit Codes: [id number] INP/OBS CARE(HIGH) MARCELA BELL MD Jan 13, 2025 10:14
[2025-01-13] MEDS: HYDROcodone-ACET 10/325MG TAB PO PRN (14:18)
[2025-01-14] VITALS (7 sets, daily range): BP systolic 111–136; BP diastolic 55–91; PULSE 53–89; RESP 14–19; TEMP 97.5–99.1; O2SAT 97–99
--- NOTE | 2025-01-14 08:30 | DVHPN2 ---
Reviewed: Care Plan, H&P, Labs, Medications, Previous Orders, Radiology Changes from previous H/P or p: No Changes Eyes: No Pain, No Vision change, No Conjunctivae inflammation, No Eyelid inflammation, No Other, No Redness ENT: No Ear pain, No Ear discharge, No Nose pain, No Nose discharge, No Nose congestion, No Mouth pain, No Mouth swelling, No Throat pain, No Throat swelling, No Other Cardiovascular: No Chest Pain, No Palpitations, No Orthopnea, No Paroxysmal Noc. Dyspnea, No Edema, No Lt Headedness, No Other Respiratory: No Cough, No Dry, No Shortness of breath, No SOB with excertion, No Wheezing, No Hemoptysis, No Pleuritic Pain, No Sputum, No Other Gastrointestinal: No Nausea, No Vomiting, No Abdominal Pain, No Diarrhea, No Constipation, No Melena, No Hematochezia, No Other Genitourinary: No Dysuria, No Frequency, No Incontinence, No Hematuria, No Retention, No Other Musculoskeletal: other (Right 3rd digit swelling/redness); No neck pain, No shoulder pain, No arm pain, No back pain, No hand pain, No leg pain, No foot pain Skin: No Rash, No Lesions, No Jaundice, No Bruising; Other (Right 3rd toe redness) Objective Vitals Vital Signs Date Time Temp Pulse Resp B/P (MAP) Pulse Ox O2 Delivery O2 Flow Rate FiO2 01/14/25 01:00 98.0 64 14 111/55 (73) 97 98.0 01/13/25 20:00 Room Air* 0 21 Intake/Output Intake and Output 01/14/25 07:00 Intake Total 1150 ml Output Total 300 ml Balance 850 ml Intake Oral 900 ml IV Total 250 ml Output Urine Total 300 ml Medications Current Medications Medications Dose Ordered Sig/Zuly Route Start Time Stop Time Status Last Admin Dose Admin Vancomycin HCl 0 ml @ 0 mls/hr UD IV 01/07/25 00:00 Sodium Chloride 10 ml Q8HR IV 01/07/25 06:00 01/14/25 05:55 10 ML Ondansetron HCl 4 mg Q4HP PRN IV 01/07/25 00:00 Docusate Sodium 100 mg BIDPRN PRN PO 01/07/25 00:00 Acetaminophen 650 mg Q6HP PRN PO 01/07/25 00:00 Morphine Sulfate 2 mg Q4HPRN PRN IV 01/07/25 00:00 01/13/25 21:41 2 MG Nitroglycerin 0.4 mg Q5MINP PRN SL 01/07/25 00:00 Morphine Sulfate 2 mg Q30M PRN IV 01/07/25 00:00 Vancomycin HCl 300 ml @ 200 mls/hr Q8H IV 01/11/25 19:00 UNV Sodium Chloride 10 ml QSHIFT@10,22 IV 01/11/25 22:00 01/14/25 01:08 10 ML Vancomycin HCl 250 ml @ 200 mls/hr Q8H IV 01/12/25 20:00 01/14/25 04:28 200 MLS/HR Acetaminophen/ Hydrocodone Bitart 1 tab Q6HP PRN PO 01/13/25 10:30 01/13/25 14:18 1 TAB Laboratory Results Laboratory Tests 01/07/25 06:24 01/10/25 05:59 01/13/25 05:30 Microbiology Microbiology Date/Time Source Procedure Growth Status 01/10/25 13:05 Foot Right Gram Stain - Final Resulted 01/10/25 13:05 Foot Right Anaerobic Culture - Preliminary Resulted 01/10/25 13:05 Aerobic Culture - Final Staphylococcus aureus Resulted Labs and/or images reviewed: Labs reviewed by me, Image(s) reviewed by me Assessment/Plan Assessment/Plan Infected right 3rd toe: Vancomycin, MRI right foot shows osteomyelitis right 3rd toe, status post right foot I&D to bone with 3rd toe bone biopsy by clinical assistant professor Dr. Bain on 01-10-25 1. Right foot I&D to bone () 2. Right foot third toe bone biopsy () PICC line in place Cultures from the wound showing MSSA, continue vancomycin: ID consult placed for Dr. Cuevas for antibiotic choice to go home. Plan discussed with: Patient My Orders Orders - MARCELA BELL MD Procedure Category Date Status Time Hydrocodone-Acet PHA 01/13/25 In Process 10/325mg Tab ([place] 10:30 * Infectious Jamila- CONS 01/14/25 Transmitted Michael Cuevas 07:45 Date of Service: Jan 14, 2025 Billing Provider: MARCELA BELL MD Common Visit Codes: [id number] INP/OBS CARE(HIGH) MARCELA BELL MD Jan 14, 2025 08:30
[2025-01-15] VITALS (7 sets, daily range): BP systolic 123–146; BP diastolic 77–87; PULSE 54–78; RESP 17–21; TEMP 97.6–99; O2SAT 98–99
--- NOTE | 2025-01-15 08:43 | DVHPN2 ---
Reviewed: Care Plan, H&P, Labs, Medications, Previous Orders, Radiology Changes from previous H/P or p: No Changes Eyes: No Pain, No Vision change, No Conjunctivae inflammation, No Eyelid inflammation, No Other, No Redness ENT: No Ear pain, No Ear discharge, No Nose pain, No Nose discharge, No Nose congestion, No Mouth pain, No Mouth swelling, No Throat pain, No Throat swelling, No Other Cardiovascular: No Chest Pain, No Palpitations, No Orthopnea, No Paroxysmal Noc. Dyspnea, No Edema, No Lt Headedness, No Other Respiratory: No Cough, No Dry, No Shortness of breath, No SOB with excertion, No Wheezing, No Hemoptysis, No Pleuritic Pain, No Sputum, No Other Gastrointestinal: No Nausea, No Vomiting, No Abdominal Pain, No Diarrhea, No Constipation, No Melena, No Hematochezia, No Other Genitourinary: No Dysuria, No Frequency, No Incontinence, No Hematuria, No Retention, No Other Musculoskeletal: other (Right 3rd digit swelling/redness); No neck pain, No shoulder pain, No arm pain, No back pain, No hand pain, No leg pain, No foot pain Skin: No Rash, No Lesions, No Jaundice, No Bruising; Other (Right 3rd toe redness) Objective Vitals Vital Signs Date Time Temp Pulse Resp B/P (MAP) Pulse Ox O2 Delivery O2 Flow Rate FiO2 01/15/25 05:44 60 18 126/60 01/15/25 05:00 98.2 99 98.2 01/14/25 20:00 Room Air* 0 21 Intake/Output Intake and Output 01/15/25 07:00 Intake Total 4894 ml Balance 4894 ml Intake Oral 1544 ml IV Total 250 ml Tube Feeding 3100 ml Medications Current Medications Medications Dose Ordered Sig/Zuly Route Start Time Stop Time Status Last Admin Dose Admin Vancomycin HCl 0 ml @ 0 mls/hr UD IV 01/07/25 00:00 Sodium Chloride 10 ml Q8HR IV 01/07/25 06:00 01/15/25 05:57 10 ML Ondansetron HCl 4 mg Q4HP PRN IV 01/07/25 00:00 Docusate Sodium 100 mg BIDPRN PRN PO 01/07/25 00:00 Acetaminophen 650 mg Q6HP PRN PO 01/07/25 00:00 Morphine Sulfate 2 mg Q4HPRN PRN IV 01/07/25 00:00 01/15/25 05:14 2 MG Nitroglycerin 0.4 mg Q5MINP PRN SL 01/07/25 00:00 Morphine Sulfate 2 mg Q30M PRN IV 01/07/25 00:00 Vancomycin HCl 300 ml @ 200 mls/hr Q8H IV 01/11/25 19:00 UNV Sodium Chloride 10 ml QSHIFT@10,22 IV 01/11/25 22:00 01/14/25 21:58 10 ML Vancomycin HCl 250 ml @ 200 mls/hr Q8H IV 01/12/25 20:00 01/15/25 04:55 200 MLS/HR Acetaminophen/ Hydrocodone Bitart 1 tab Q6HP PRN PO 01/13/25 10:30 01/14/25 13:55 1 TAB Laboratory Results Laboratory Tests 01/07/25 06:24 01/10/25 05:59 01/13/25 05:30 Microbiology Microbiology Date/Time Source Procedure Growth Status 01/10/25 13:05 Foot Right Gram Stain - Final Resulted 01/10/25 13:05 Foot Right Anaerobic Culture - Preliminary Resulted 01/10/25 13:05 Aerobic Culture - Final Staphylococcus aureus Resulted Labs and/or images reviewed: Labs reviewed by me, Image(s) reviewed by me Assessment/Plan Assessment/Plan Infected right 3rd toe: Vancomycin, MRI right foot shows osteomyelitis right 3rd toe, status post right foot I&D to bone with 3rd toe bone biopsy by senior java architect Dr. Bain on 01-10-25 1. Right foot I&D to bone () 2. Right foot third toe bone biopsy () PICC line in place Cultures from the wound showing MSSA, continue vancomycin: ID consult placed for Dr. Cuevas for antibiotic choice to go home. Continue current management Plan discussed with: Patient Date of Service: Jan 15, 2025 Billing Provider: MARCELA BELL MD Common Visit Codes: [id number] INP/OBS CARE(HIGH) MARCELA BELL MD Jan 15, 2025 08:43
--- NOTE | 2025-01-15 10:27 | DVHINCON2 ---
Date of service: Jan 14, 2025 Family History: Patient reports no known family medical history. Allergies: Coded Allergies: NO KNOWN ALLERGIES (Unverified , 01/06/25) Home Meds Active Scripts Rifampin (Rifampin) 300 Mg Cap, 300 MG PO BID for 42 Days, #84 CAP Prov:LISA CUEVAS MD 01/15/25 Sulfamethoxazole W/Trimethopri (Bactrim Ds Tablet) 1 Tab Tb, 1 TAB PO BID for 42 Days, #84 TAB Prov:LISA CUEVAS MD 01/15/25 Vital Signs Vital Signs Date Time Temp Pulse Resp B/P (MAP) Pulse Ox O2 Delivery O2 Flow Rate FiO2 01/15/25 09:00 99.0 57 17 123/81 (95) 98 99.0 01/15/25 08:00 Room Air* 0 21 Labs/Diagnostic Data Labs Test 01/13/25 19:32 01/13/25 05:30 01/10/25 12:20 01/10/25 05:59 Range/Units Vancomycin Level Trough 16.8 H 5-10 ug/mL Creatinine 0.82 0.700-1.30 mg/dL Glomerular Filtration Rate Calc 128 >90 mL/min Prothrombin Time 11.5 9.3-11.8 sec Prothrombin Time INR 1.09 0.9-1.15 Activated Partial Thromboplast Time 29.9 24.5-34.5 SEC White Blood Count 5.7 4.4-10.8 10^3/uL Red Blood Count 5.38 4.5-5.90 10^6/uL Hemoglobin 16.9 13.5-17.5 g/dL Hematocrit 47.2 41.0-53.0 % Mean Corpuscular Volume 87.6 80.0-100.0 fL Mean Corpuscular Hemoglobin 31.3 28.0-32.0 pg Mean Corpuscular Hemoglobin Concent 35.8 32.0-36.0 g/dL Red Cell Distribution Width 14.0 11.8-14.3 % Platelet Count 219 140-450 10^3/uL Mean Platelet Volume 8.8 6.9-10.8 fL Neutrophils (%) (Auto) 70.9 37.0-80.0 % Lymphocytes (%) (Auto) 17.2 10.0-50.0 % Monocytes (%) (Auto) 10.0 0.0-12.0 % Eosinophils (%) (Auto) 1.1 0.0-7.0 % Basophils (%) (Auto) 0.8 0.0-2.0 % Neutrophils # (Auto) 4.0 1.6-8.6 10 ^3/uL Lymphocytes # (Auto) 1.0 0.4-5.4 10 ^3/uL Monocytes # (Auto) 0.6 0-1.3 10 ^3/uL Eosinophils # (Auto) 0.1 0-0.8 10 ^3/uL Basophils # (Auto) 0 0-0.2 10 ^3/uL Nucleated Red Blood Cells 0.0 % Test 01/09/25 05:10 01/07/25 06:24 Range/Units Hemoglobin A1c 4.7 <5.7 % A1C Sodium Level 141 136-145 mmol/L Potassium Level 3.2 L 3.5-5.1 mmol/L Chloride Level 104 98-107 mmol/L Carbon Dioxide Level 24 20-31 mmol/L Anion Gap 13 5-15 Blood Urea Nitrogen 7 L 9-23 mg/dL BUN/Creatinine Ratio 9.1 L 10.0-20.0 Serum Glucose 97 74-106 mg/dL Calcium Level 9.0 8.7-10.4 mg/dL Total Bilirubin 1.7 H 0.2-1.0 mg/dL Aspartate Amino Transferase (AST) 17 <34 U/L Alanine Aminotransferase (ALT) 19 7-40 U/L Alkaline Phosphatase 68 46-116 U/L Total Protein 7.0 5.7-8.2 g/dL Albumin 4.4 3.2-4.8 g/dL Microbiology Date/Time Source Procedure Growth Status 01/10/25 13:05 Foot Right Gram Stain - Final Resulted 01/10/25 13:05 Foot Right Anaerobic Culture - Preliminary Resulted 01/10/25 13:05 Aerobic Culture - Final Staphylococcus aureus Resulted Plan/Recommendation ASSESSMENT AND PLAN: ID Problem List: - Acute right foot digit infection - Cellulitis, possible abscess - Osteomyelitis of R foot Assessment: This is a 19 y.o. male with no prior medical or surgical history who presents with one week of acute swelling and discoloration of the third digit of the right foot. The patient was initially treated with Keflex (cephalexin) as an outpatient; however, there was no response to this therapy. He presents to the emergency department with worsening pain and swelling of the right foot. On admission, white blood cell count was 10.3 K/uL, platelets 202 K/uL, sodium 143 mmol/L, BUN 9 mg/dL, and creatinine 0.86 mg/dL. The patient was started on empiric intravenous vancomycin. Clinical suspicion is high for ongoing soft tissue infection of the right foot, possibly complicated by abscess formation or early deeper tissue involvement, given lack of response to first-line antibiotics and persistent/worsening symptoms. sp InD, bone biopsy and cultures acquired 01/10, MSSA growth operative sp 01/12 closure of wound. Plan: - Continue intravenous vancomycin while inpatient, pending culture results and clinical improvement. - oral bactrim 1 DS bid and oral rifampin 300mg po bid. will start inpatient and confirm tolerance. if so, can dc on 6 weeks oral therapy - fu in ID clinic in 6 weeks. Isolation Precautions: Standard Assessment and plan was discussed with the patient as written above Plan is subject to change pending incorporation of new incoming information/diagnostics. Updates may be added as addendum at the bottom (OR TOP) of this note Thank you for the consult. ID will continue to follow as needed. Please contact Infectious Disease for any questions or concerns. Lisa Cuevas M.D. [facility] Ph: ? ? Teams text: [email or web address] History: The patient's chart and medications were reviewed in detail and the patient was seen and examined. History obtained from: patient 19-year-old male with no significant past medical or surgical history who develo ped acute swelling and discoloration of the third digit of the right foot over one week. Treated with Keflex as outpatient without improvement; symptoms worsened prompting ED evaluation. Started on empiric vancomycin. No known prior surgeries. Review of Systems: A complete 10 system review of systems was completed and negative except as noted in the HPI or here. ROS: - CONSTITUTIONAL: Denies weight loss, fever and chills. - HEENT: Denies changes in vision and hearing. - RESPIRATORY: Denies shortness of breath and cough. - CV: Denies chest pain and palpitations. - GI: Denies abdominal pain, nausea, vomiting and diarrhea. - : Denies dysuria and urinary frequency. - MSK: Denies myalgia and joint pain. - SKIN: Denies rash and pruritus except for swelling and discoloration right foot third digit (as above). - NEUROLOGICAL: Denies headache and syncope. - PSYCHIATRIC: Denies recent changes in mood, anxiety, or depression. Past Medical History: No significant past medical history. Past Surgical History: No prior surgeries. Home Medications: Prior to admission: None. Empiric outpatient: Keflex (cephalexin), details (dose/frequency) not specified. Allergies: No known drug allergies. Family History: none Social History: no smoking no alcohol no IVDU Objective: Vital Signs on Arrival: Not provided in transcript. Most Recent Vital Signs: Not provided in transcript. Admission Weight: Not provided in transcript. Physical Exam: General: NAD Neck: Supple. No masses. HEENT: PERRL. Normal lids and conjunctiva. Moist mucous membranes. Oropharynx without lesions, exudates or excessive erythema. Normal appearance of the external aspects of the nose and ears. Heart: Regular rhythm, normal rate. No murmur. No lower extremity edema. Lungs: Normal respiratory effort. Clear to auscultation bilaterally. No wheezes. No crackles. Abdomen: Soft. Non-tender. Non-distended. No masses or abdominal hernia. Msk: Acute swelling and discoloration of 3rd digit right foot noted. No digital cyanosis elsewhere. Normal strength and tone in all 4 limbs. Skin: Warm and dry, no rashes. Swollen, discolored 3rd digit right foot. Neuro: Alert. No facial droop or slurred speech. Extra-ocular m ovements intact. Sensation intact to soft touch in all 4 limbs. Psych: Appropriate mood. Full affect. Oriented to person, place, time, and situation. Lines: Not provided in transcript. Diagnostic Studies: White blood cell count 10.3 K/uL, platelets 202 K/uL, sodium 143 mmol/L, BUN 9 mg/dL, creatinine 0.86 mg/dL. No additional diagnostic studies provided. Pertinent Imaging: MRI w/ osteolyelitis of 3rd distal phalanx Additional Notes: Further details pending additional studies and updates. Plan discussed with: Patient LISA CUEVAS MD Jan 15, 2025 10:27
[2025-01-15] MEDS ORDERED: BACDST PO (10:32)
[2025-01-15] MEDS ORDERED: RIFA300C58 PO (10:32)
[2025-01-15] MEDS: SULFAMETHOX W/TRIMETH(800/160MG) DS TAB PO SCH (21:44)
[2025-01-15] MEDS: rifAMPin 300 MG CAP PO SCH (21:44)
[2025-01-16 04:52] VITALS: BP 124/88; PULSE 55; RESP 17; TEMP 97.7; O2SAT 99
[2025-01-16 09:00] VITALS: BP 136/88; PULSE 60; RESP 18; TEMP 98.2; O2SAT 100
--- NOTE | 2025-01-16 10:22 | DVHPN2 ---
Reviewed: Care Plan, H&P, Labs, Medications, Previous Orders, Radiology Changes from previous H/P or p: No Changes Eyes: No Pain, No Vision change, No Conjunctivae inflammation, No Eyelid inflammation, No Other, No Redness ENT: No Ear pain, No Ear discharge, No Nose pain, No Nose discharge, No Nose congestion, No Mouth pain, No Mouth swelling, No Throat pain, No Throat swelling, No Other Cardiovascular: No Chest Pain, No Palpitations, No Orthopnea, No Paroxysmal Noc. Dyspnea, No Edema, No Lt Headedness, No Other Respiratory: No Cough, No Dry, No Shortness of breath, No SOB with excertion, No Wheezing, No Hemoptysis, No Pleuritic Pain, No Sputum, No Other Gastrointestinal: No Nausea, No Vomiting, No Abdominal Pain, No Diarrhea, No Constipation, No Melena, No Hematochezia, No Other Genitourinary: No Dysuria, No Frequency, No Incontinence, No Hematuria, No Retention, No Other Musculoskeletal: other (Right 3rd digit swelling/redness); No neck pain, No shoulder pain, No arm pain, No back pain, No hand pain, No leg pain, No foot pain Skin: No Rash, No Lesions, No Jaundice, No Bruising; Other (Right 3rd toe redness) Objective Vitals Vital Signs Date Time Temp Pulse Resp B/P (MAP) Pulse Ox O2 Delivery O2 Flow Rate FiO2 01/16/25 08:00 Room Air* 0 21 01/16/25 04:52 97.7 55 17 124/88 (100) 99 97.7 Intake/Output Intake and Output 01/16/25 07:00 Intake Total 2200 ml Output Total 5600 ml Balance -3400 ml Intake Oral 1700 ml IV Total 500 ml Output Urine Total 5600 ml # Bowel Movements 1 Medications Current Medications Medications Dose Ordered Sig/Zuly Route Start Time Stop Time Status Last Admin Dose Admin Vancomycin HCl 0 ml @ 0 mls/hr UD IV 01/07/25 00:00 Sodium Chloride 10 ml Q8HR IV 01/07/25 06:00 01/16/25 05:36 10 ML Ondansetron HCl 4 mg Q4HP PRN IV 01/07/25 00:00 Docusate Sodium 100 mg BIDPRN PRN PO 01/07/25 00:00 Acetaminophen 650 mg Q6HP PRN PO 01/07/25 00:00 Nitroglycerin 0.4 mg Q5MINP PRN SL 01/07/25 00:00 Vancomycin HCl 300 ml @ 200 mls/hr Q8H IV 01/11/25 19:00 UNV Sodium Chloride 10 ml QSHIFT@10,22 IV 01/11/25 22:00 01/16/25 09:09 10 ML Vancomycin HCl 250 ml @ 200 mls/hr Q8H IV 01/12/25 20:00 01/16/25 03:41 200 MLS/HR Acetaminophen/ Hydrocodone Bitart 1 tab Q6HP PRN PO 01/13/25 10:30 01/15/25 18:22 1 TAB Trimethoprim/ Sulfamethoxazole 1 tab Q12HR PO 01/15/25 22:00 01/16/25 09:09 1 TAB Rifampin 300 mg BID PO 01/15/25 22:00 01/16/25 09:09 300 MG Laboratory Results Laboratory Tests 01/07/25 06:24 01/10/25 05:59 01/13/25 05:30 Microbiology Microbiology Date/Time Source Procedure Growth Status 01/10/25 13:05 Foot Right Gram Stain - Final Resulted 01/10/25 13:05 Foot Right Anaerobic Culture - Preliminary Resulted 01/10/25 13:05 Aerobic Culture - Final Staphylococcus aureus Resulted Labs and/or images reviewed: Labs reviewed by me, Image(s) reviewed by me Assessment/Plan Assessment/Plan Infected right 3rd toe: Vancomycin, MRI right foot shows osteomyelitis right 3rd toe, status post right foot I&D to bone with 3rd toe bone biopsy by centerless grinder tender Dr. Bain on 01-10-25 1. Right foot I&D to bone () 2. Right foot third toe bone biopsy () PICC line in place Cultures from the wound showing MSSA, continue vancomycin: ID consult placed for Dr. Mason ramirez, advised Bactrim-DS one tablet p.o. b.i.d. and rifampin 300 mg p.o. b.i.d. for six weeks as an out pt. Continue current management Plan discussed with: Patient Date of Service: Jan 16, 2025 Billing Provider: MARCELA BELL MD Common Visit Codes: [id number] INP/OBS CARE(HIGH) MARCELA BELL MD Jan 16, 2025 10:22
[2025-01-16 13:00] VITALS: BP 138/93; PULSE 73; RESP 18; TEMP 98.7; O2SAT 97
[2025-01-16 17:00] VITALS: BP 13/75; PULSE 55; RESP 18; TEMP 97.5; O2SAT 98
[2025-01-16 20:00] VITALS: PULSE 59; RESP 18; O2SAT 98
[2025-01-16 21:00] VITALS: BP 129/57; PULSE 59; RESP 18; TEMP 98.2; O2SAT 98
[2025-01-17 01:00] VITALS: BP 119/69; PULSE 79; RESP 18; TEMP 97.9; O2SAT 99
[2025-01-17 05:00] VITALS: BP 125/80; PULSE 65; RESP 16; TEMP 97.8; O2SAT 99
[2025-01-17 08:00] VITALS: PULSE 68; RESP 16; O2SAT 98
[2025-01-17 09:00] VITALS: BP 117/78; PULSE 68; RESP 16; TEMP 97.6; O2SAT 98
[2025-01-17] MEDS ORDERED: HYDR1TAB97 PO (11:03)
--- NOTE | 2025-01-17 11:10 | DVHDS2 ---
Discharge Summary Date of Admission Jan 06, 2025 at 23:54 Date of Discharge: Jan 17, 2025 Admitting Diagnosis Right 3rd toe infection Wounds: Right 3rd toe infection Labs/Diagnostic Data: Laboratory Results Test 01/17/25 10:52 01/17/25 05:28 01/10/25 12:20 01/10/25 05:59 Creatinine 0.95 mg/dL (0.700-1.30) Glomerular Filtration Rate Calc 117 mL/min (>90) Prothrombin Time 11.5 sec (9.3-11.8) Prothrombin Time INR 1.09 (0.9-1.15) Activated Partial Thromboplast Time 29.9 SEC (24.5-34.5) White Blood Count 5.7 10^3/uL (4.4-10.8) Red Blood Count 5.38 10^6/uL (4.5-5.90) Hemoglobin 16.9 g/dL (13.5-17.5) Hematocrit 47.2 % (41.0-53.0) Mean Corpuscular Volume 87.6 fL (80.0-100.0) Mean Corpuscular Hemoglobin 31.3 pg (28.0-32.0) Mean Corpuscular Hemoglobin Concent 35.8 g/dL (32.0-36.0) Red Cell Distribution Width 14.0 % (11.8-14.3) Platelet Count 219 10^3/uL (140-450) Mean Platelet Volume 8.8 fL (6.9-10.8) Neutrophils (%) (Auto) 70.9 % (37.0-80.0) Lymphocytes (%) (Auto) 17.2 % (10.0-50.0) Monocytes (%) (Auto) 10.0 % (0.0-12.0) Eosinophils (%) (Auto) 1.1 % (0.0-7.0) Basophils (%) (Auto) 0.8 % (0.0-2.0) Neutrophils # (Auto) 4.0 10 ^3/uL (1.6-8.6) Lymphocytes # (Auto) 1.0 10 ^3/uL (0.4-5.4) Monocytes # (Auto) 0.6 10 ^3/uL (0-1.3) Eosinophils # (Auto) 0.1 10 ^3/uL (0-0.8) Basophils # (Auto) 0 10 ^3/uL (0-0.2) Nucleated Red Blood Cells 0.0 % Test 01/09/25 05:10 01/07/25 06:24 Hemoglobin A1c 4.7 % A1C (<5.7) Sodium Level 141 mmol/L (136-145) Potassium Level 3.2 mmol/L (3.5-5.1) Chloride Level 104 mmol/L (98-107) Carbon Dioxide Level 24 mmol/L (20-31) Anion Gap 13 (5-15) Blood Urea Nitrogen 7 mg/dL (9-23) BUN/Creatinine Ratio 9.1 (10.0-20.0) Serum Glucose 97 mg/dL (74-106) Calcium Level 9.0 mg/dL (8.7-10.4) Total Bilirubin 1.7 mg/dL (0.2-1.0) Aspartate Amino Transferase (AST) 17 U/L (<34) Alanine Aminotransferase (ALT) 19 U/L (7-40) Alkaline Phosphatase 68 U/L (46-116) Total Protein 7.0 g/dL (5.7-8.2) Albumin 4.4 g/dL (3.2-4.8) Other Laboratory Tests 01/17/25 05:28 01/10/25 05:59 01/07/25 06:24 Brief Hx & Hospital Course: 68-year-old admitted for right 3rd toe infection treated with the vancomycin underwent incision and drainage to the bone with a bone biopsy by . MRI showed osteomyelitis right 3rd toe. PICC line was placed he was given vancomycin IV. As the patient has only medical pending ID consult placed for Dr. Turner Land for possible p.o. antibiotics. Wound cultures grew MSSA. He advised Bactrim-DS one tablet p.o. b.i.d. for six weeks and rifampin 300 mg p.o. b.i.d. for six weeks which were transmitted to the pharmacy patient being discharged. Crutches ordered. [place] and antibiotics transmitted for the [facility] pharmacy. He will follow up with the discharge clinic and with Dr. Bain Consults/Reason for consult Podiatric Dr. Bain ID DR Turner Cuevas Operations or Procedures Incision and drainage Condition at Discharge: Fair Final Diagnosis/Problems List Infected right 3rd toe: Vancomycin, MRI right foot shows osteomyelitis right 3rd toe, status post right foot I&D to bone with 3rd toe bone biopsy by postal mail carrier Dr. Bain on 01-10-25 1. Right foot I&D to bone () 2. Right foot third toe bone biopsy () PICC line in place Cultures from the wound showing MSSA, continue vancomycin: ID consult placed for Dr. Cuevas appreciated, advised Bactrim-DS one tablet p.o. b.i.d. and rifampin 300 mg p.o. b.i.d. for six weeks as an out pt. Discharge Disposition: Home Discharge Instruct/Medications Diet: Regular Activity: Light activity Follow Up/Referral: Use Medications as prescribed Discharge follow up with the discharge clinic in one week Follow up with the podiatric Dr. Bain in one week Medications: Bactrim ds Rifampin [place] Transmitted to [facility]'s 39 (Time taken for discharge summary 39 minutes) Discharge Statement: "Patient was advised to return to the ER or call 911 if any headaches, dizziness, shortness of breath, chest pain, abdominal pain, bleeding, fevers, or worsening of medical condition. Patient was counseled about treatment plan, medications, possible side effects, patientverbalized understanding. All questions were answered to the best of my ability. This discharge took greater then 30 minutes in planning, reviewing documentation, counseling the patient, and discussing with other team members." ASSESSMENT ASSESSMENT Hospital Course Improved Assessment Infected right 3rd toe: Vancomycin, MRI right foot shows osteomyelitis right 3rd toe, status post right foot I&D to bone with 3rd toe bone biopsy by postal mail carrier Dr. Bain on 01-10-25 1. Right foot I&D to bone () 2. Right foot third toe bone biopsy () PICC line in place Cultures from the wound showing MSSA, continue vancomycin: ID consult placed for Dr. Mason ramirez, advised Bactrim-DS one tablet p.o. b.i.d. and rifampin 300 mg p.o. b.i.d. for six weeks as an out pt. Date of Service: Jan 17, 2025 Billing Provider: MARCELA BELL MD Common Visit Codes: 61867-KNH/OBS DISCH DAY >30min MARCELA BELL MD Jan 17, 2025 11:10
[2025-01-17 13:00] VITALS: BP_SYST 117; BP_SYST 136; BP_DIAS 78; BP_DIAS 88; PULSE 111; PULSE 68; RESP 16; RESP 20; TEMP 97.5; TEMP 97.9; O2SAT 98
[2025-01-17] MEDS ORDERED: RIFA300C58 PO (16:07)
[2025-01-17] MEDS ORDERED: HYDR-4902 PO (16:07)
== END 2025-01-17 14:00 | disposition home or self-care (01) | DRG 344 ==
LOC: ER 17:53 → OVERFLOW 23:54 → EAST 23:57
PROVIDERS: ADMIT Family Medicine; ATTEND Family Medicine
PROC: 0Y9M0ZZ Drainage of Right Foot, Open Approach (ICD-10-PCS; 2025-01-10)
PROC: 0QBQ0ZX Excision of Right Toe Phalanx, Open Approach, Diagnostic (ICD-10-PCS; principal; 2025-01-10 12:53)
PROC: 02HV33Z Insertion of Infusion Device into Superior Vena Cava, Percutaneous Approach (ICD-10-PCS; 2025-01-11)
PROC: B548ZZA Ultrasonography of Superior Vena Cava, Guidance (ICD-10-PCS; 2025-01-11)
PROC: 0Y9M0ZZ Drainage of Right Foot, Open Approach (ICD-10-PCS; 2025-01-12)
DX: E11.69 Type 2 diabetes mellitus with other specified complication (principal); M86.8X7 Other osteomyelitis, ankle and foot; L03.115 Cellulitis of right lower limb; E11.621 Type 2 diabetes mellitus with foot ulcer; B95.61 Methicillin susceptible Staphylococcus aureus infection as the cause of diseases classified elsewhere; L97.519 Non-pressure chronic ulcer of other part of right foot with unspecified severity; L02.611 Cutaneous abscess of right foot; S90.415A Abrasion, left lesser toe(s), initial encounter; X58.XXXA Exposure to other specified factors, initial encounter; Y93.89 Activity, other specified; Y92.89 Other specified places as the place of occurrence of the external cause; Y99.8 Other external cause status
CPT/HCPCS: 36415; 36569; 73700; 73718; 76937; 80053; 80202; 82565; 83036; 85025; 85610; 85730; 87070; 87075; 87077; 87186; 87205; 96365; 96375; 97110; 97116; 97163; 97530; G0378; J1100; J1885; J2250; J2405; J2704; J3490